=== PATIENT | female | born 1955 | race Caucasian/White ===

== ENCOUNTER 2019-07-28 12:15 | Emergency (ER) | payer MEDICARE, SELFPAY ==
[2019-07-28 12:28] VITALS: BP 115/58; PULSE 78; RESP 20; TEMP 36.8; O2SAT 100
--- NOTE | 2019-07-28 12:46 | ED.GENADULT ---
HPI - General Adult General Chief complaint: Upper Respiratory Infection Stated complaint: SINUS CONGESITON/COUGH Time Seen by Provider: 07/28/19 12:52 Source: patient Mode of arrival: ambulatory Limitations: no limitations History of Present Illness HPI narrative: 63-year-old female [facility] complaints of sinus congestion for the past 5 to 6 weeks. Patient states she does have chronic allergy issues and does take a daily Claritin. Patient states she has been using home remedy and treatments including a humidifier in her room and warm salt water gargles. Patient states that she continues to have nasal congestion, drainage, cough and sometimes does cough up some sputum but denies any chest pain or shortness of breath. Denies any fevers. Denies any abdominal pain, nausea, vomiting or diarrhea. Related Data Home Medications Medication Instructions Recorded Confirmed Vitamin D3 07/28/19 insulin asp prt-insulin aspart 45 unit SUBCUT HS 07/28/19 07/28/19 [Novolog Mix 70-30 U-100 Insuln] losartan 100 mg PO DAILY 07/28/19 07/28/19 metoprolol tartrate 25 mg PO BID 07/28/19 07/28/19 semaglutide [Ozempic] 1 mg SUBCUT WEEKLY 07/28/19 07/28/19 Allergies Allergy/AdvReac Type Severity Reaction Status Date / Time adhesive Allergy Unknown Rash Verified 07/28/19 12:40 aspirin Allergy Unknown Other Verified 07/28/19 12:40 clindamycin Allergy Unknown Diarrhea Verified 07/28/19 12:40 latex Allergy Unknown Other Verified 07/28/19 12:40 lidocaine Allergy Unknown Other Verified 07/28/19 12:40 lisinopril Allergy Unknown Itching Verified 07/28/19 12:40 Review of Systems Review of Systems: Narrative: CONSTITUTIONAL: Denies fever, chills, or sweats. EYES: Denies visual changes, redness, or discharge. ENT: Positive rhinorrhea, congestion, denies sore throat, or otalgia. CARDIOVASCULAR: Denies chest pain, palpitations, or edema. RESPIRATORY: Positive cough, denies dyspnea. GASTROINTESTINAL: Denies abdominal pain, nausea, vomiting, or diarrhea. GENITOURINARY: Denies dysuria or hematuria. SKIN: Denies rash or itching. MUSCULOSKELETAL: Denies back pain, joint pain, or myalgia. NEUROLOGIC: Positive headache, denies numbness, or weakness. PSYCHIATRIC: Denies anxiety or depression. [facility] Family History Family History Father Diabetes mellitus Family history of Alzheimer's disease Grandparent Diabetes mellitus Mother Diabetes mellitus Sibling Diabetes mellitus Family history of blood dyscrasia Cerebrovascular accident Other Family history of bipolar disorder Social History Social History Smoking status: Former smoker Smoking end date: 06/17/84 Alcohol intake: current Comments At the time of my signature I agree with nursing past medical history, surgical, social, and family history. There is no relevant family history pertinent to the presenting complaint. Exam Narrative: Exam Narrative: GENERAL: Well-appearing, well-nourished, and in no acute distress. HEAD: Normocephalic, atraumatic. Tenderness noted to frontal and maxillary sinuses on palpation. EYES: PERRLA and EOMI. ENT: Nares with erythema and edema noted bilaterally, no rhinorrhea or epistaxis. Mucous membranes moist. Posterior pharynx with no erythema, tonsillar margin, exudates or lesions present. Bilateral TMs are clear no erythema or foreign bodies in the canal. NECK: Supple. No lymphadenopathy CHEST: Clear to auscultation. No respiratory distress. HEART: Regular rate and rhythm. No murmur heard. Normal peripheral pulses. ABDOMEN: Soft, nontender, nondistended, normal active bowel sounds. EXTREMITIES: Normal range of motion. No edema. SKIN: Warm, dry, no rash. NEURO: No focal deficits. Alert and oriented x3. Course Vital Signs Vital signs: Vital Signs Temperature 36.8 C 07/28/19 12:28 Pulse Rate 78
== END 2019-07-28 13:05 | disposition home or self-care (01) ==
PROVIDERS: Emergency Provider Nurse Practitioner Family; PCP Family Medicine
DX: J32.0 Chronic maxillary sinusitis (principal); Z87.891 Personal history of nicotine dependence; E78.00 Pure hypercholesterolemia, unspecified; I10 Essential (primary) hypertension; J45.909 Unspecified asthma, uncomplicated; G47.30 Sleep apnea, unspecified; M19.90 Unspecified osteoarthritis, unspecified site; M79.7 Fibromyalgia; E11.9 Type 2 diabetes mellitus without complications
CPT/HCPCS: 99213; G0463

== ENCOUNTER 2020-01-27 07:33 | Outpatient (CLI) | payer MEDICARE, SELFPAY ==
--- NOTE | ~2020-01-27 | US_ITS ---
EXAMINATION: US right upper quadrant DATE: 01/27/2020 08:14 INDICATION: Right upper quadrant abdominal mass. TECHNIQUE: Multiple grayscale and Doppler ultrasound images of the abdomen were obtained. COMPARISON: Chest CT 02/01/2017 FINDINGS: The visualized portions of the head, body, and tail of the pancreas are normal. The liver i s normal without focal lesion. There is normal flow in main portal vein. The gallbladder is normal in size. No gallstones or wall thickening. There was no sonographic Castro sign. The common duct is nor mal and measures 3 mm. IMPRESSION: 1. Normal right upper quadrant ultrasound. Note that the prior CT showed a hernia in the right upper quadrant. Reviewed, dictated and finalized at location [facility]. IMPRESSION: 1. Normal right upper quadrant ultrasound. Note that the prior CT showed a andra ia in the right upper quadrant.
--- NOTE | ~2020-01-27 | XR_ITS ---
EXAMINATION: XR knee LT 3V DATE: 01/27/2020 08:32 INDICATION: Left knee pain. TECHNIQUE: 3 views of left knee were obtained. COMPARISON: None. FINDINGS: Bone alignment is normal. No fracture. There is moderate osteoarthritis of medial compartme nt and mild osteoarthritis of lateral and patellofemoral compartments. No knee joint effusion. IMPRESSION: 1. Moderate left knee osteoarthritis. Reviewed, dictated and finalized at location [facility].
== END 2020-01-27 07:34 | disposition home or self-care (01) ==
LOC: CHSIMG 07:35
PROVIDERS: PCP Family Medicine; Visit Provider Family Medicine
DX: R19.01 Right upper quadrant abdominal swelling, mass and lump (principal); M25.562 Pain in left knee
CPT/HCPCS: 73562; 76705

== ENCOUNTER 2020-08-17 13:30 | Outpatient (CLI) | payer MEDICARE, SELFPAY ==
[2020-08-18 00:45] LABS: SARS-CoV-2 RNA PCR Negative
== END 2020-08-17 13:31 | disposition home or self-care (01) ==
LOC: CHSLAB 13:33
PROVIDERS: PCP Family Medicine; Visit Provider Family Medicine
DX: J00 Acute nasopharyngitis [common cold] (principal); Z20.822 Contact with and (suspected) exposure to COVID-19
CPT/HCPCS: C9803; U0003; U0005

== ENCOUNTER 2021-07-23 19:05 | Inpatient (IN) | payer MEDICARE, SELFPAY ==
--- NOTE | ~2021-07-23 | CT_ITS ---
EXAMINATION: CT abdomen pelvis w con DATE: 07/23/2021 23:36 INDICATION: Worsening right abdominal pain TECHNIQUE: Computed tomography (CT) of the abdomen and pelvis was performed with 100 cc Omnipaque 350 intravenous contrast. Automated exposure control and iterative reconstruction technique were employe d. Exam dose: 1360.75 mGy-cm total exam DLP. COMPARISON: None. FINDINGS: There is minimal atelectasis in the lower lung zones. Normal heart size. No pericardial or pleural effusion. No hepatic space-occupying mass lesion is evident. Phrygian cap of the gallbladder. No gallbladder wall thickening or pericholecystic fluid or fat stran ding. No bile duct or pancreatic duct dilatation. No pancreatic mass lesion or calcification. Normal splenic size. The adrenal glands are unremarkable. 5.8 cm lower pole right renal cyst. The kidneys are otherwise unremarkable. No urinary tract calculus or hydroureteronephrosis. Normal caliber of the abdominal aorta. No intraperitoneal or retroperitoneal or pelvic mass lesion or adenopathy or ascites. Status post hysterectomy. There is small bowel obstruction within a large right ventral abdominal wall hernia with up to 6.7 cm wide neck, apparently due to some septation within the hernia sac, with transition zone in the media l aspect of the hernia sac. The small bowel is decompressed distal to this point and dilated up to 3. 3 cm diameter and numerous small bowel air-fluid levels proximal to the obstruction. There is small bowel as well as the right colon and appendix within the hernia sac. There is no evide nce of appendicitis. Diffuse idiopathic skeletal hyperostosis of the thoracic spine. There is multilevel degenerative disc disease of the lumbar spine, most pronounced at L3-4 and L5-S1. There is a smaller more superiorly situated right-sided upper anterior abdominal wall hernia with 2.8 cm neck, measuring up to 7.2 cm transverse dimension, containing fat. Diverticulosis of the left colon; no CT evidence of diverticulitis. No intraperitoneal free air is detected. IMPRESSION: Small bowel obstruction within the medial aspect of a large [place] right ventral abdo marquise wall hernia Smaller right upper abdominal wall fat-containing abdominal wall hernia 5.8 cm right renal cyst Status post hysterectomy Reviewed, dictated and finalized at [facility]. Reviewed, dictated and finalized at location A. N TIRE INSPECTOR IMPRESSION: Small bowel obstruction within the medial aspect of a large [place] uth right ventral abdominal wall hernia Smaller right upper abdominal wall fat-containing abdominal wall hernia 5.8 cm right renal cyst Status post hysterectomy
--- NOTE | ~2021-07-23 | XR_ITS ---
EXAMINATION: XR abdomen NG/feed tube insert DATE: 07/24/2021 01:15 INDICATION: Nasogastric tube placement TECHNIQUE: A supine view of the abdomen and lower chest was obtained for evaluation of feeding tube placement. COMPARISON: None. FINDINGS: Nasal gastric tube tip in proximal side port in the body of the stomach. No dilated loops of gas-fill ed bowel in the visualized abdomen. No evident airspace opacities in the visualized mid and lower avery g zones. Heart size is normal. IMPRESSION: 1. Nasogastric tube in stomach. Reviewed, dictated and finalized at location A. [employer]
[2021-07-23 19:14] VITALS: BP 165/77; PULSE 87; RESP 18; TEMP 36.9; O2SAT 100
--- NOTE | 2021-07-23 22:34 | ED.ABDPAIN ---
HPI - Abdominal Pain General Chief Complaint: Abdominal Pain Stated Complaint: abd pain, diarrhea, headache Time Seen by Provider: 07/23/21 21:51 Source: patient History of Present Illness HPI narrative: 65-year-old female presented to the emergency department for evaluation of abdominal bloating and cramping that has been ongoing for the last month but has worsened over the last few days. Patient has a previous history of an adrenal tumor that was removed laparoscopically. Patient developed a worsening hernia after that surgery. Patient has had approximately 7 surgeries to fix that hernia but does still have a significant abdominal wall defect containing her bowels. Patient has had follow-up with Dr. Muñoz (?) at [facility] and he is expected to be the physician to repair this. Patient also describes a thinning of the caliber of her stool over the last few weeks. Patient's previous abdominal surgeries were done at [place] Patient declined any medications for pain control at this time. Related Data Home Medications Medication Instructions Recorded Confirmed insulin asp prt-insulin aspart 35 unit SUBCUT BID 07/28/19 07/24/21 [Novolog Mix 70-30 U-100 Insuln] metformin 1,000 mg PO BID 07/24/21 07/24/21 Allergies Allergy/AdvReac Type Severity Reaction Status Date / Time adhesive Allergy Unknown Rash Verified 07/24/21 00:01 clindamycin Allergy Unknown Diarrhea Verified 07/24/21 00:01 latex Allergy Unknown Itching Verified 07/24/21 00:01 lidocaine Allergy Unknown Other Verified 07/24/21 00:01 lisinopril Allergy Unknown Itching Verified 07/24/21 00:01 Review of Systems Review of Systems: CONSTITUTIONAL: Denies fever, chills, or sweats. EYES: Denies visual changes, redness, or discharge. ENT: Denies rhinorrhea, congestion, sore throat, or otalgia. CARDIOVASCULAR: Denies chest pain, palpitations, or edema. RESPIRATORY: Denies cough or dyspnea. GASTROINTESTINAL: Increasing fullness of the abdominal hernia, increased abdominal cramping, decreased stool caliber GENITOURINARY: Denies dysuria or hematuria. SKIN: Denies rash or itching. MUSCULOSKELETAL: Denies back pain, joint pain, or myalgia. NEUROLOGIC: Denies headache, numbness, or weakness. All systems reviewed & are unremarkable except as noted in HPI and below PMFSH Family History Family History (Updated 07/24/21 @ 02:18 by Vale Bazan RN) Father Diabetes mellitus Family history of Alzheimer's disease Grandparent Diabetes mellitus Family history of blood dyscrasia Mother Diabetes mellitus Family history of Alzheimer's disease Sibling Diabetes mellitus Cerebrovascular accident Son Family history of bipolar disorder Grandparent No problems noted. Social History Social History Smoking status: Former smoker Alcohol intake: current Substance use: never Spiritual care concerns: No Exam Narrative: APPEARANCE: Well appearing, no pain, no distress, well-nourished. HEAD: normocephalic, atraumatic. EYES: PERRLA/EOMI, conjunctivae clear. NECK: Supple. No adenopathy, no masses. RESPIRATORY: Airway patent, respirations nonlabored. Clear to auscultation bilaterally, no rales, rhonchi, wheezing. CARDIOVASCULAR: Regular rate and rhythm without murmurs rubs or gallops. ABDOMINAL: Large right-sided abdominal wall hernia, minimal tenderness to palpation. Decreased bowel sounds. Some chronic wounds and scars on the abdomen but no active drainage or evidence of acute infection MUSCULOSKELETAL: Moves all extremities. Strength/ROM intact, No edema, No calf tenderness. SKIN: Warm, dry. Normal Color Course Course Emergency Course: Case was discussed with surgery and patient was accepted by . Hospitalist was consulted to manage the patient's blood sugars due to her diabetes. Patient was updated on the plan for admission. NG tube was placed. Vital Signs Vital signs: Vital Signs Temperature 98
[2021-07-23 22:44] LABS: Basophils Percent Auto 0.2 % (0.2-1.2); Eosinophils Absolute Auto 0.2 K/mm3 (0-0.3); Eosinophils Percent Auto 1.8 % (0-4.4); Hematocrit 42.7 % (37.0-47.0); Hemoglobin 13.8 g/dL (12.0-15.0); Immature Granulocyte Absolute 0.03 K/mm3 (0.00-0.031); Immature Granulocyte Percent A 0.3 % (0-0.5); Lymphocytes Absolute Auto 3.33 K/mm3 (0.9-3.2); Lymphocytes Percent Auto 34.8 % (18.3-44.2); Mean Corpuscular HGB Conc 32.3 g/dl (32-36); Mean Corpuscular Hemoglobin 29.4 pg (26-34); Mean Platelet Volume 10.4 fl (7.4-10.4); Monocytes Absolute Auto 0.6 K/mm3 (0.1-0.6); Neutrophils Absolute Auto 5.5 K/mm3 (1.3-6.7); Neutrophils Percent Auto 56.9 % (45.5-73.1); Platelet Count Result 325 k/mm3 (150-375); Red Blood Count 4.69 M/mm3 (4.2-5.4); Red Cell Distribution Width 13.6 % (11.5-14.5); White Blood Count 9.6 K/mm3 (4.5-10.0)
[2021-07-23 22:46] LABS: Alanine Aminotransferase 17 U/L (4-35); Albumin Level 4.3 g/dL (3.5-5.1); Alkaline Phosphatase 84 U/L (38-126); Anion Gap 7 mmol/L (8-16); Aspartate Amino Transferase 20 U/L (14-36); Bilirubin,Total 0.8 mg/dL (0.2-1.3); Blood Urea Nitrogen 8 mg/dL (7-17); Calcium 9.9 mg/dL (8.4-10.2); Carbon Dioxide 28 mmol/L (22-30); Chloride 101 mmol/L (98-107); Estimated CRCL calculation 68 ml/min; Estimated Glomerular Filt Rate > 60; Glucose 111 mg/dL (65-110); Lipase 36 U/L (23-300); Potassium 3.7 mmol/L (3.4-5.0); Sodium 136 mmol/L (137-145)
[2021-07-23 22:52] LABS: Add Urine Microscopic? YES; Appearance Urine Clear (Clear); Bacteria Urine Trace /hpf; Bilirubin Urine Negative (Negative); Blood Urine Negative (Negative); Color Urine Yellow (Yellow); Glucose Urine UA Negative (Negative); Ketones Urine Negative (Negative); Lactic Acid Reflex 1.1 mmol/L (0.7-2.1); Leukocyte Esterase Ur 3+ LEU/UL (Negative); Mucus Urine Rare /lpf; Nitrate Urine Negative (Negative); Protein Urine Negative (Negative); RBC Urine 0-2 /hpf (0-2); Specific Grav Ur 1.015 (1.001-1.035); Squamous Epithelial Cell Urine Moderate /hpf (Few); Urobilinogen Urine Negative mg/dL (<2.0); WBC Urine 16-20 /hpf
[2021-07-23 23:57] VITALS: BP 177/80; PULSE 77; RESP 14; O2SAT 99
[2021-07-24] VITALS (8 sets, daily range): BP systolic 145–182; BP diastolic 57–73; PULSE 70–82; RESP 16–18; TEMP 36.4–36.6; O2SAT 96–100; BMI 43.2
[2021-07-24 00:38] LABS: SARS-CoV-2 RNA PCR Negative
[2021-07-24] MEDS: SODIUM CHLORIDE 0.9% IV 1,000 ML 125 ML IV CONT ×3 (01:57→20:59)
--- NOTE | 2021-07-24 07:45 | PM.IMCN ---
Assessment and Plan Assessment and plan (1) SBO (small bowel obstruction): Code(s): K56.609 - Unspecified intestinal obstruction, unspecified as to partial versus complete obstruction Status: Acute Assessment and Plan: Based on prior records from GI consultation 10/2018 it showed: In 2006 she developed an incisional hernia at laparoscopic port site and underwent incisional hernia repair with mesh. Subsequently in 2006 mesh became infected and she underwent removal of infected mesh. In 2007 she developed recurrent incisional hernia at this site and underwent removal of remaining mesh and incisional hernia repair with suture only. Two thousand she developed another recurrent incisional hernia and underwent repair of hernia with mesh. Soon after the repair she noticed a large recurrent bulge in the right lower quadrant at site of previous surgeries. At this time, CT is suggesting SBO with transition point within the right abdominal wall hernia with mild inflammation in the hernia sac and cannot exclude incarceration. She was admitted under General Surgery and with a consult to Hospitalist service for management of HTN and diabetes. She has PRN antiemetics, pain medications and PPI ordered. Continue monitoring. (2) Essential hypertension: Code(s): I10 - Essential (primary) hypertension Status: Acute Assessment and Plan: BP elevated this morning at 160/68. Most likely secondary to pain. Patient had been refusing pain medication thus far. Continue monitoring. Add PRN medications if needed. (3) Insulin dependent diabetes mellitus: Status: Acute Assessment and Plan: Since she is NPO will order SSI at this time. Continue monitoring glucose Q6hrs. Hypoglycemic protocol in place. SSI. HPI Data of Consult Consult date: 07/24/21 Requesting Physician: Radha Navarro PA-C Primary Care Provider: Mina Mendez MD Consult Narrative Narrative: Giuliana Jerry is a 65 year old female with a history of fibromyalgia, HTN, DM, asthma and multiple abdominal surgeries in the past, presented to the ER with symptoms of abd pain. The patient has a long history of multiple abdominal surgeries in the past. She has had all of her surgeries at [facility] and had been following up with a surgeon named Dr. Roland about possibly another surgery given the large hernia she has to her right lower quadrant. She saw him before 2019 the COVID pandemic and he wanted her to lose 100 lbs for him to be able to do the approriate surgery. Then once the pandemic started she has not been back to follow up given her autoimmune diseases and worried about becoming sick. She had been doing well until Feb 2021 when she had an episode of vomiting and some abdominal discomfort. Since then she has had gradually worsening abdominal discomfort, silvana colored and thinner stools. She states her abdomen felt sluggist . She started a probiotic with some improvement in her bowel movements. She reports about 1 week ago her symptoms became worse again, with diffuse abdominal bloating, vomiting, tenderness and firmness to her abdomen. She reported feeling constipated and took some Miralax and had a small bowel movement a few days ago which made her feel minimally better. She has not appetite and reports only drinking 1 bottle of water per day and 1 sprite. She has not eaten much food at all because of her symptoms. She decided to finally come in to the ER given continued symptoms without any relief, fatigue, weakness for further evaluation. She denies any fever, chills, chest pain, SOB, cough,nausea, leg swelling, calf pain, lightheadedness, dizziness or any other symptoms at this time. Review of Systems Review of Systems: All systems reviewed & are unremarkable except as noted in HPI an
[2021-07-24] MEDS: PANTOPRAZOLE SODIUM IV 40 MG VIAL IV PUSH ×2 (09:56→20:27)
[2021-07-24] MEDS: PHENOL/SOD PHENO SPRAY CHERRY (*BKC) 1 SPRAY MUCOUS MEM (11:53)
[2021-07-24 14:54] LABS: Glucose Point of Care 109 mg/dl (65-105)
--- NOTE | 2021-07-24 15:40 | PM.IMHP ---
H&P: HPI History of Present Illness Date/Time: 07/24/21 10:05 Chief Complaint: Abdominal pain, distention Narrative: This is a 65-year-old obese female with type 2 diabetes mellitus and asthma, has a significant history of multiple extensive abdominal surgeries. She underwent a laparoscopic right adrenalectomy in 2002 due to a large-sized benign adrenal adenoma. In 2006, she developed an incisional hernia at the laparoscopic port site and underwent an incisional hernia repair with mesh. She reports poor healing and a chronic open wound from this incision that ultimately required incision and drainage with removal of some mesh in 2006. She reports having multiple cultures without any bacterial growth and did not believe that this was in fact infected. In 2007, she developed another recurrent incisional hernia and underwent removal of remaining mesh and incisional hernia repair with sutures. She reportedly healed from this surgery, but did develop another recurrent incisional hernia and underwent repair of the hernia with mesh in 2016. Soon after this repair, she noticed another bulge in the right upper quadrant at the site of her previous surgeries. She reports having all previous surgeries at [facility]. She reports now seeing a surgeon at [facility], Dr. Tomas Roland, about 1.5 years ago who discussed surgical treatment options for her recurrent incisional hernia. She was reportedly instructed to lose 100 lb for him to proceed with the surgery. She reports losing 70 lb in the last 1.5 years with lifestyle changes and intermittent fasting. She has not followed up with the surgeon since her initial consultation due to concerns with going into the hospital setting during the COVID pandemic. She also had a history of hypertension and hyperlipidemia, which she no longer takes medication for since her weight loss. The patient reports that 6 days ago, she had an episode of vomiting that she felt was related to over-eating. Almost immediately after the vomiting, she had a sudden onset of abdominal pain and swelling at her hernia. She reports her abdomen felt distended and she had pain all across her entire abdomen, but worse at the area of her hernia. She reports no further episodes of nausea or vomiting, but her abdominal pain and distention remained constant over the next few days. She reports also noticing a cough over the past week at times that would aggravate her abdominal pain. She also reports feeling constipated, therefore she took MiraLax two nights ago and subsequently had a large liquid BM. She admits to holding off on seeking medical treatment for personal reasons, but did eventually decide to come to the ER for evaluation yesterday. CT scan of the abdomen and pelvis showed a small bowel obstruction within the medial aspect of the large wide-mouthed right ventral abdominal wall hernia, and a smaller right upper abdominal wall hernia containing fat. Incidentally noted is a right renal cyst and degenerative disc disease. Labs were unremarkable. WBC and lactic acid were normal. Urinalysis showed 3+ leukocytes, 16-20 wbc's, and moderate squamous epithelial cells. Patient denies any urinary symptoms. COVID test negative. Our service was consulted by the ED physician due to the large ventral wall hernia possibly causing a small-bowel obstruction. The patient has been admitted and an NG tube was placed. She was started on IV fluids, made NPO, and is currently on the medical floor. The patient is now seen and examined. She reports feeling much better. She reports passing large amounts of gas overnight and this morning. No bowel movement since Saturday. She reports her abdominal pain has completely resolved and she feels that her distention has improved as well. No other complaints at this time. Review of Systems Review of Systems: All systems reviewed & are unremarkable except as noted in HPI and below Constitutional: Constitutiona
[2021-07-25 01:30] LABS: Glucose Point of Care 90 mg/dl (65-105)
[2021-07-25] MEDS: BENZOCAINE/MENTHOL (*BKC) 18 EA LOZENGE 1 LOZENGE PO (03:37)
[2021-07-25] MEDS: SODIUM CHLORIDE 0.9% IV 1,000 ML 125 ML IV CONT (05:13)
[2021-07-25 05:30] VITALS: BP 154/68; PULSE 84; RESP 16; TEMP 36.7; O2SAT 98
[2021-07-25 06:07] LABS: Glucose Point of Care 107 mg/dl (65-105)
[2021-07-25 08:02] LABS: Hematocrit 40.1 % (37.0-47.0); Hemoglobin 12.7 g/dL (12.0-15.0); Mean Corpuscular HGB Conc 31.7 g/dl (32-36); Mean Corpuscular Hemoglobin 29.8 pg (26-34); Mean Corpuscular Volume 94.1 fl (80-100); Platelet Count Result 233 k/mm3 (150-375); Red Blood Count 4.26 M/mm3 (4.2-5.4); Red Cell Distribution Width 13.7 % (11.5-14.5); White Blood Count 10.2 K/mm3 (4.5-10.0)
[2021-07-25 08:14] LABS: Lactic Acid Reflex 0.8 mmol/L (0.7-2.1)
[2021-07-25 08:15] LABS: Anion Gap 10 mmol/L (8-16); Blood Urea Nitrogen 6 mg/dL (7-17); Calcium 8.5 mg/dL (8.4-10.2); Carbon Dioxide 22 mmol/L (22-30); Chloride 106 mmol/L (98-107); Estimated CRCL calculation 78 ml/min; Estimated Glomerular Filt Rate > 60; Glucose 122 mg/dL (65-110); Magnesium 1.5 mg/dL (1.6-2.3); Potassium 3.7 mmol/L (3.4-5.0); Sodium 138 mmol/L (137-145)
[2021-07-25 08:30] LABS: Hemoglobin A1C 9.6 % (<5.7)
[2021-07-25] MEDS: PANTOPRAZOLE SODIUM IV 40 MG VIAL IV PUSH ×2 (09:46→20:42)
--- NOTE | 2021-07-25 10:00 | PM.IMPN ---
Progress Note: A&P Assessment and Plan (1) SBO (small bowel obstruction): Code(s): K56.609 - Unspecified intestinal obstruction, unspecified as to partial versus complete obstruction Status: Acute Assessment and Plan: Based on prior records from GI consultation 10/2018 it showed: In 2006 she developed an incisional hernia at laparoscopic port site and underwent incisional hernia repair with mesh. Subsequently in 2006 mesh became infected and she underwent removal of infected mesh. In 2007 she developed recurrent incisional hernia at this site and underwent removal of remaining mesh and incisional hernia repair with suture only. 2016 she developed another recurrent incisional hernia and underwent repair of hernia with mesh. Soon after the repair she noticed a large recurrent bulge in the right lower quadrant at site of previous surgeries. At this time, CT is suggesting SBO with transition point within the right abdominal wall hernia with mild inflammation in the hernia sac and cannot exclude incarceration. She was admitted under General Surgery and with a consult to Hospitalist service for management of HTN and diabetes. She has PRN antiemetics, pain medications and PPI ordered. Currently moving her bowels and tolerating clears Management per general surgery (2) Essential hypertension: Code(s): I10 - Essential (primary) hypertension Status: Acute Assessment and Plan: -mildly elevated but stable -continue monitoring, add hydralazine prn if indicated (3) Insulin dependent diabetes mellitus: Status: Acute Assessment and Plan: -Continue monitoring glucose Q6hrs. -Hypoglycemic protocol in place. -SSI. Subjective Date/time seen: 07/25/21 10:00 Interval history: 65 year old female with a history of fibromyalgia, HTN, DM, asthma and multiple abdominal surgeries in the past, admitted for small bowel obstruction. Pt is feeling much better. The NG tube was removed and she is tolerating clear liquids. She has had two bowel movements today. She denies N/V/abd pain. No cp/sob. Review of Systems Review of Systems: All systems reviewed & are unremarkable except as noted in HPI and below Exam Narrative: General: NAD, non toxic Skin: warm, dry Neck: Full range of motion. Supple. Respiratory: Lungs are clear to auscultation bilaterally. Cardiovascular: The heart has a regular rate and rhythm without murmur Lower extremities: No lower extremity edema. Distal pulses are easily palpated. No calf tenderness to palpation. Gastrointestinal: Large abdominal hernia noted to RLQ, soft to palpation, nontender. The abdomen is otherwise soft, nontender and nondistended. Positive bowel sounds. Psychiatric: Lucid and oriented. Memory intact. Neurologic: No focal deficits. Speech is clear. No facial drooping. Objective Data Vital Signs Vital Signs: Vital Signs - 24 hr 07/24/21 13:13 07/24/21 14:00 07/24/21 20:00 Temperature 97.6 F Pulse Rate 77 82 Respiratory Rate 16 16 Blood Pressure 145/57 H Pulse Oximetry 97 96 100 07/24/21 22:00 07/25/21 05:30 Temperature 97.8 F 98.1 F Pulse Rate 82 84 Respiratory Rate 16 16 Blood Pressure 147/63 H 154/68 H Pulse Oximetry 100 98 Intake/Output Intake/Output: Intake & Output 07/22/21 07/23/21 07/24/21 07/25/21 23:59 23:59 23:59 23:59 Intake Total 1999 1750 Output Total 925 700 Balance 1075 1050 Meds/Results Medications: Active Medications Generic Name Dose Route Start Last Admin Trade Name Freq PRN Reason Stop Dose Admin Benzocaine 1 lozenge 07/24/21 18:16 07/25/21 03:37 Benzocaine/Menthol (*Bkc) 18 Ea Lozenge PO 1 lozenge PRN PRN Administration Sore Throat Dextrose 12.5 gm 07/24/21 07:41 Dextrose 50% 25 Gm/50
--- NOTE | 2021-07-25 10:04 | PM.PNGS ---
Progress Note: A&P Assessment and Plan (1) SBO (small bowel obstruction): Code(s): K56.609 - Unspecified intestinal obstruction, unspecified as to partial versus complete obstruction Status: Acute Assessment and Plan: Resolving. Bowels are moving. Will remove NG tube today and start clear liquids. Encouraged walking the halls today as well. (2) Recurrent incisional hernia with incarceration: Code(s): K43.0 - Incisional hernia with obstruction, without gangrene Status: Acute Assessment and Plan: Large recurrent incisional hernia containing small bowel and some of the right colon that is likely the cause of the small bowel obstruction, which is resolving. Also a smaller RUQ ventral hernia superior to the larger one that contains fat. The hernias are soft and nontender. They are not fully reducible at baseline. Discussed with the patient that she should call Dr. Roland at [facility] after discharge to schedule a follow-up with him in the near future to discuss options for repairing her hernias. Continue to work on weight loss while waiting for the appointment. (3) Insulin dependent diabetes mellitus: Status: Acute Assessment and Plan: Hgb A1C 9.6 and glucose this morning is 122. Appreciate Hospitalist help. (4) Morbid obesity with body mass index (BMI) of 40.0 or higher: Code(s): E66.01 - Morbid (severe) obesity due to excess calories Status: Acute Assessment and Plan: Reported 70 lb weight loss in last 1.5 years. Continue working on weight loss while awaiting for f/u with Dr. Roland. Additional Plan I have discussed the patient's case and plan of care with . Subjective Subjective Date/Time Seen: 07/25/21 10:04 Patient reports: no new complaints, feels better, tolerating liquids well (sips), flatus, bowel movement (2) and afebrile Interval history: Patient seen and examined this morning. She reports much better. Denies any abdominal pain, bloating, or nausea. She reports having 2 bowel movements since yesterday, 1 being this morning. She feels her right upper quadrant hernia is back to what it typically feels like at home. She is tolerating activity. No other complaints at this time. Review of Systems Review of Systems: All systems reviewed & are unremarkable except as noted in HPI and below Exam Const: General: comfortable, no acute distress, alert and awake Nutritional Appearance: obese morbidly obese GI: Inspection: obesity and visible herniation (large bulge in RUQ) GI Palp: Yes Soft to palpation, No Tenderness to palpation present (GI), No Guarding due to palpation present (GI), Yes Hernia present (RUQ incisional hernia is soft, partially reducible, nontender) and No Rebound tenderness present Auscultation: normal bowel sounds Other: Two small scabs inferior and superior to the RUQ scar that have no active drainage or open wounds, no erythema or warmth around the scab. Neuro: General: moves all extremities and no focal motor deficits Extrem: General: no edema Psych: Insight: Good insight present (Psych) Judgement: Good judgement present (Psych) Objective Data Vital Signs Vital Signs: Vital Signs - 24 hr 07/24/21 13:13 07/24/21 14:00 07/24/21 20:00 Temperature 97.6 F Pulse Rate 77 82 Respiratory Rate 16 16 Blood Pressure 145/57 H Pulse Oximetry 97 96 100 07/24/21 22:00 07/25/21 05:30 Temperature 97.8 F 98.1 F Pulse Rate 82 84 Respiratory Rate 16 16 Blood Pressure 147/63 H 154/68 H Pulse Oximetry 100 98 Intake/Output Intake/Output: Intake & Output 07/22/21 07/23/21 07/24/21 07/25/21 23:59 23:59 23:59 23:59 Intake Total 1999 1750 Output Total 925 700 Balance 1075 1050 Meds/Results Medications: Active Medications Generic Name Dose Route Start Last Admin Trade Name Venkatesh PRN Reason Stop Dose Admin Benzocaine 1 lozenge 07/24/21 18:16 07/25/21 03:37 Benzocaine/Menthol (*Bkc) 18 Ea Lozeng
[2021-07-25 12:50] LABS: Glucose Point of Care 167 mg/dl (65-105)
[2021-07-25] MEDS: SODIUM CHLORIDE 0.9% IV 1,000 ML 75 ML IV CONT (13:32)
[2021-07-25 14:00] VITALS: BP 148/58; PULSE 75; RESP 18; TEMP 36.9; O2SAT 98
[2021-07-25] MEDS: MAGNESIUM OXIDE 400 MG TABLET PO (17:31)
[2021-07-25 19:38] LABS: Glucose Point of Care 212 mg/dl (65-105)
[2021-07-25 20:00] VITALS: PULSE 69; RESP 16; O2SAT 99
[2021-07-25 21:40] VITALS: BP 152/68; PULSE 69; RESP 16; TEMP 37.1; O2SAT 99
[2021-07-25 22:12] LABS: Glucose Point of Care 170 mg/dl (65-105)
[2021-07-26] MEDS: SODIUM CHLORIDE 0.9% IV 1,000 ML 75 ML IV CONT (02:58)
[2021-07-26 05:59] VITALS: BP 151/64; PULSE 69; RESP 16; TEMP 36.4; O2SAT 97
[2021-07-26 07:26] LABS: Basophils Percent Auto 0.4 % (0.2-1.2); Eosinophils Absolute Auto 0.4 K/mm3 (0-0.3); Eosinophils Percent Auto 5.4 % (0-4.4); Hematocrit 36.2 % (37.0-47.0); Hemoglobin 11.8 g/dL (12.0-15.0); Immature Granulocyte Absolute 0.03 K/mm3 (0.00-0.031); Immature Granulocyte Percent A 0.4 % (0-0.5); Lymphocytes Percent Auto 32.1 % (18.3-44.2); Mean Corpuscular HGB Conc 32.6 g/dl (32-36); Mean Corpuscular Hemoglobin 29.4 pg (26-34); Mean Platelet Volume 10.8 fl (7.4-10.4); Monocytes Absolute Auto 0.7 K/mm3 (0.1-0.6); Monocytes Percent Auto 8.7 % (2.6-8.5); Platelet Count Result 276 k/mm3 (150-375); Red Blood Count 4.02 M/mm3 (4.2-5.4); Red Cell Distribution Width 13.3 % (11.5-14.5); White Blood Count 7.5 K/mm3 (4.5-10.0)
[2021-07-26 07:30] LABS: Anion Gap 10 mmol/L (8-16); Blood Urea Nitrogen 4 mg/dL (7-17); Calcium 8.2 mg/dL (8.4-10.2); Carbon Dioxide 24 mmol/L (22-30); Chloride 107 mmol/L (98-107); Estimated CRCL calculation 78 ml/min; Estimated Glomerular Filt Rate > 60; Glucose 140 mg/dL (65-110); Potassium 3.2 mmol/L (3.4-5.0); Sodium 141 mmol/L (137-145)
[2021-07-26 07:58] LABS: Glucose Point of Care 139 mg/dl (65-105)
[2021-07-26] MEDS: MAGNESIUM OXIDE 400 MG TABLET PO (09:25)
[2021-07-26] MEDS: POTASSIUM CHLORIDE 20 MEQ TABLET 40 MEQ PO (09:28)
--- NOTE | 2021-07-26 09:44 | PM.PNGS ---
Progress Note: A&P Assessment and Plan (1) SBO (small bowel obstruction): Code(s): K56.609 - Unspecified intestinal obstruction, unspecified as to partial versus complete obstruction Status: Acute Assessment and Plan: Resolved. Bowels are moving. Advance to a low-fiber diet today. Would recommend that she follow a low-fiber diet until she follows up with Dr. Roland at [facility]. Okay from our standpoint to discharge the patient today. (2) Recurrent incisional hernia with incarceration: Code(s): K43.0 - Incisional hernia with obstruction, without gangrene Status: Acute Assessment and Plan: Recommend follow-up with Dr. Roland at [facility] to discuss options for hernia repair. Patient has an appointment for Saturday. (3) Insulin dependent diabetes mellitus: Status: Acute Assessment and Plan: Hgb A1C 9.6, appreciate Hospitalist help. Recommended to continue working on adequate glycemic control. (4) Morbid obesity with body mass index (BMI) of 40.0 or higher: Code(s): E66.01 - Morbid (severe) obesity due to excess calories Status: Acute Assessment and Plan: Reported 70 lb weight loss in last 1.5 years. Continue working on weight loss while awaiting for f/u with Dr. Roland. Additional Plan I have discussed the patient's case and plan of care with . Subjective Subjective Date/Time Seen: 07/26/21 09:44 Patient reports: no new complaints, feels better, flatus, bowel movement and afebrile Interval history: Patient seen and examined this morning. She is tolerating a full liquid diet. She feels hungry. She also reports having a large bowel movement this morning. No abdominal pain, bloating, or distention of her hernia that she feels is different than her baseline. No other complaints at this time. She also reports that she has scheduled a follow-up appointment with Dr. Roland at [facility] for Saturday. Review of Systems Review of Systems: All systems reviewed & are unremarkable except as noted in HPI and below Exam Const: General: comfortable, no acute distress, alert and awake Nutritional Appearance: obese morbidly obese Orientation/consciousness: patient oriented x3 GI: Inspection: non-distended, Pannus present, obesity, scar (large horizontal RUQ scar) and visible herniation (large bulge in RUQ) GI Palp: Yes Hernia present (large RUQ incisional hernia that is soft, nontender, partially reducible) Auscultation: normal bowel sounds Other: Two small scabs inferior and superior to the RUQ scar that have no active drainage or open wounds, no erythema or warmth around the scab. Neuro: General: moves all extremities and no focal motor deficits Extrem: General: normal to inspection Psych: Mental Status: mental status grossly normal Insight: Good insight present (Psych) Judgement: Good judgement present (Psych) Objective Data Vital Signs Vital Signs: Vital Signs - 24 hr 07/25/21 14:00 07/25/21 20:00 07/25/21 21:40 Temperature 98.4 F 98.7 F Pulse Rate 75 69 69 Respiratory Rate 18 16 16 Blood Pressure 148/58 H 152/68 H Pulse Oximetry 98 99 99 07/26/21 05:59 Temperature 97.5 F L Pulse Rate 69 Respiratory Rate 16 Blood Pressure 151/64 H Pulse Oximetry 97 Intake/Output Intake/Output: Intake & Output 07/23/21 07/24/21 07/25/21 07/26/21 23:59 23:59 23:59 23:59 Intake Total 1999 3260 2260 Output Total 925 1600 Balance 1075 1660 2260 Meds/Results Medications: Active Medications Generic Name Dose Route Start Last Admin Trade Name Freq PRN Reason Stop Dose Admin Benzocaine 1 lozenge 07/24/21 18:16 07/25/21 03:37 Benzocaine/Menthol (*Bkc) 18 Ea Lozenge PO 1 lozenge PRN PRN Administration Sore Throat Dextrose 12.5 gm 07/24/21 07:41 Dextrose 50% 25 Gm/50 Ml Syringe IV PUSH PRN PRN Hypoglycemia Protocol Glucagon 1 mg 07/24/21 07:41 Glucagon For Inj 1 Mg Vial IM PRN PRN Hypoglycemi
[2021-07-26 11:34] LABS: Anion Gap 2 mmol/L (8-16); Blood Urea Nitrogen 4 mg/dL (7-17); Calcium 8.7 mg/dL (8.4-10.2); Carbon Dioxide 29 mmol/L (22-30); Chloride 104 mmol/L (98-107); Estimated CRCL calculation 78 ml/min; Estimated Glomerular Filt Rate > 60; Glucose 211 mg/dL (65-110); Potassium 4.1 mmol/L (3.4-5.0); Sodium 135 mmol/L (137-145)
[2021-07-26 11:58] LABS: Glucose Point of Care 189 mg/dl (65-105)
--- NOTE | 2021-07-26 12:31 | PM.DS ---
DS: Admitting Diagnosis Discharge Date 07/26/21 Admitting Diagnosis Recurrent incisional hernia with incarceration but no strangulation Small bowel obstruction IDDM Obesity BMI > 40 DS: Discharge Diagnosis Discharge Diagnosis (1) Recurrent incisional hernia with incarceration: Code(s): K43.0 - Incisional hernia with obstruction, without gangrene Status: Acute Assessment and Plan: Follow-up with Dr. Roland at [facility] to discuss surgical repair. Patient has an appointment scheduled for Saturday with him. (2) SBO (small bowel obstruction): Code(s): K56.609 - Unspecified intestinal obstruction, unspecified as to partial versus complete obstruction Status: Acute Assessment and Plan: Resolved. (3) Insulin dependent diabetes mellitus: Status: Acute Assessment and Plan: Hgb A1C 9.6, glucose remained stable. Hospitalist consulted and helped managed her diabetes while hospitalized. Follow-up with PCP. (4) Morbid obesity with body mass index (BMI) of 40.0 or higher: Code(s): E66.01 - Morbid (severe) obesity due to excess calories Status: Acute Assessment and Plan: Reported 70 lb weight loss in last 1.5 years. Continue working on weight loss while awaiting for f/u with Dr. Roland. DS: Summary Hospital Course Reason for hospitalization: This is a 65-year-old obese female with type 2 diabetes mellitus, who has a significant history of multiple extensive abdominal surgeries (all outlined in the H&P). She presented to the ER with complaints of abdominal pain and bloating. CT scan of the abdomen and pelvis showed a small bowel obstruction within the medial aspect of the large wide-mouthed right ventral abdominal wall hernia, and a smaller right upper abdominal wall hernia containing fat. Labs were unremarkable. WBC and lactic acid were normal. Our service was consulted by the ED physician due to the large ventral wall hernia possibly causing a small-bowel obstruction. The patient has been admitted in this setting. Hospital Course: The small bowel obstruction was treated with conservative measures, including NG tube decompression, bowel rest, IV fluids, and analgesics. She quickly showed clinical improvement. Her abdominal pain and bloating subsided overnight. Her RUQ incisional hernias were soft and nontender on exam. At baseline, they are unable to be fully reduced, and she felt that her hernias had returned to their typical appearance and feel at baseline at home. Bowel function returned, and her NG tube was removed. She was slowly advanced to a low fiber diet. She continued to improve up until today. She is now tolerating a low fiber diet and stable for discharge. Due to the large size of her hernia, loss of domain, and expected complexity of the repair, we would recommend that she follow back up with Dr. Roland at [facility] as soon as possible after discharge to re-evaluate her for surgical repair. Status at Discharge Functional status at discharge: independent ambulation Overall status at discharge: patient is back to baseline Time Spent with Patient Time attestation: Total time spent providing and/or coordinating discharge services: Time spent: Less than 30 minutes DS: Data Data Completed and Pending Labs on day of discharge: Labs from last 24 hours 07/26/21 07/26/21 07/26/21 11:32 11:19 07:56 WBC RBC Hgb Hct MCV MCH MCHC RDW Plt Count MPV Immature Gran % (Auto) Neut % (Auto) Lymph % (Auto) Pepin % (Auto) Eos % (Auto) Baso % (Auto) Lymph # (Auto) Pepin # (Auto) Eos # (Auto) Baso # (Auto) Abs Immat Gran (auto) Absolute Neuts (auto) Absolute Nucleated RBC Nucleated RBC % Sodium 135 L Potassium 4.1 Chloride 104 Carbon Dioxide 29 Anion Gap 2 L BUN 4 L Creatinine 0.70 Estim Creat Clear Calc 78 Estimated GFR > 60 Glucose 211 H POC Capillary Glucose 189 H 139 H Ca
--- NOTE | 2021-07-26 13:19 | PM.IMPN ---
Progress Note: A&P Assessment and Plan (1) SBO (small bowel obstruction): Code(s): K56.609 - Unspecified intestinal obstruction, unspecified as to partial versus complete obstruction Status: Acute Assessment and Plan: Based on prior records from GI consultation 10/2018 it showed: In 2006 she developed an incisional hernia at laparoscopic port site and underwent incisional hernia repair with mesh. Subsequently in 2006 mesh became infected and she underwent removal of infected mesh. In 2007 she developed recurrent incisional hernia at this site and underwent removal of remaining mesh and incisional hernia repair with suture only. 2016 she developed another recurrent incisional hernia and underwent repair of hernia with mesh. Soon after the repair she noticed a large recurrent bulge in the right lower quadrant at site of previous surgeries. At this time, CT is suggesting SBO with transition point within the right abdominal wall hernia with mild inflammation in the hernia sac and cannot exclude incarceration. She was admitted under General Surgery and with a consult to Hospitalist service for management of HTN and diabetes. She has PRN antiemetics, pain medications and PPI ordered. Currently moving her bowels and tolerating low fiber diet Management per general surgery, being discharged today (2) Essential hypertension: Code(s): I10 - Essential (primary) hypertension Status: Acute Assessment and Plan: -mildly elevated but stable -pcp follow up (3) Insulin dependent diabetes mellitus: Status: Acute Assessment and Plan: -Continue monitoring glucose Q6hrs. -Hypoglycemic protocol in place. -SSI. -stable -continue kathleen e meds on discharge (4) Hypomagnesemia: Code(s): E83.42 - Hypomagnesemia Status: Acute Assessment and Plan: -mildly low, replaced -recheck in 1 week (5) Hypokalemia: Code(s): E87.6 - Hypokalemia Status: Acute Assessment and Plan: -mildly low, replaced -recheck in 1 week Subjective Date/time seen: 07/26/21 13:19 Interval history: 65 year old female with a history of fibromyalgia, HTN, DM, asthma and multiple abdominal surgeries in the past, admitted for small bowel obstruction. Pt feels good and is ready to go home. She had a low fiber meal for lunch and tolerated well. No abd pain, nausea, vomiting. no cp, sob. No other complaints. Review of Systems Review of Systems: All systems reviewed & are unremarkable except as noted in HPI and below Exam Narrative: General: NAD, non toxic Skin: warm, dry Neck: Full range of motion. Supple. Respiratory: Lungs are clear to auscultation bilaterally. Cardiovascular: The heart has a regular rate and rhythm without murmur Lower extremities: No lower extremity edema. Distal pulses are easily palpated. No calf tenderness to palpation. Gastrointestinal: Large abdominal hernia noted to RLQ, soft to palpation, nontender. The abdomen is otherwise soft, nontender and nondistended. Positive bowel sounds. Psychiatric: Lucid and oriented. Memory intact. Neurologic: No focal deficits. Speech is clear. No facial drooping. Objective Data Vital Signs Vital Signs: Vital Signs - 24 hr 07/25/21 14:00 07/25/21 20:00 07/25/21 21:40 Temperature 98.4 F 98.7 F Pulse Rate 75 69 69 Respiratory Rate 18 16 16 Blood Pressure 148/58 H 152/68 H Pulse Oximetry 98 99 99 07/26/21 05:59 Temperature 97.5 F L Pulse Rate 69 Respiratory Rate 16 Blood Pressure 151/64 H Pulse Oximetry 97 Intake/Output Intake/Output: Intake & Output 07/23/21 07/24/21 07/25/21 07/26/21 23:59 23:59 23:59 23:59 Intake Total 1999 3260 2380 Output Total 925 1600 Balance 1075 1660 2380 Meds/Results Medica
[2021-07-26 14:00] VITALS: BP 117/64; PULSE 65; RESP 16; TEMP 36.6; O2SAT 98
== END 2021-07-26 14:41 | disposition home or self-care (01) | DRG 394 ==
LOC: ANHED 07-24 00:22 → ANH3MEDSUR 07-24 01:12
PROVIDERS: Nurse Practitioner Family; Physician Assistant; Admitting Provider Surgery; Emergency Provider Emergency Medicine; PCP Family Medicine; Visit Provider Physician Assistant
DX: K43.0 Incisional hernia with obstruction, without gangrene (principal); Z68.41 Body mass index [BMI] 40.0-44.9, adult; E66.01 Morbid (severe) obesity due to excess calories; E11.9 Type 2 diabetes mellitus without complications; Z20.822 Contact with and (suspected) exposure to COVID-19; I10 Essential (primary) hypertension; M79.7 Fibromyalgia; J45.909 Unspecified asthma, uncomplicated; E83.42 Hypomagnesemia; E87.6 Hypokalemia; Z79.4 Long term (current) use of insulin; Z79.84 Long term (current) use of oral hypoglycemic drugs; Z28.21 Immunization not carried out because of patient refusal; Z87.891 Personal history of nicotine dependence; Z98.890 Other specified postprocedural states
CPT/HCPCS: 36415; 74177; 80048; 80053; 81001; 82948; 83036; 83605; 83690; 83735; 85025; 85027; 87086; 87088; 96374; 96376; 99285; A9270; C9113; C9803; J7030; Q9967; U0003; U0005

== ENCOUNTER 2022-05-02 08:55 | Outpatient (CLI) | payer MEDICARE, SELFPAY ==
--- NOTE | ~2022-05-02 | MM_ITS ---
EXAMINATION: MM screening katty BI w marquise HISTORY: Screening TECHNIQUE: Craniocaudal and mediolateral oblique 3-D tomosynthesis images were obtained and synthetic 2-D images were generated. CAD analysis was submitted and interpreted. COMPARISON: No prior mammogram is available for comparison at this institution. BREAST PARENCHYMAL COMPOSITION: There are scattered areas of fibroglandular density. FINDINGS: There is no evidence of suspicious mass, calcification, or architectural distortion to sugg est malignancy in either breast. There has been no suspicious interval change. IMPRESSION: 1. No mammographic evidence of malignancy. 2. Recommend routine screening mammography in one year. BI-RADS Category 1: Negative Reviewed, dictated and finalized at location A. PING ROOM CLEANER
== END 2022-05-02 08:56 | disposition home or self-care (01) ==
LOC: CHSIMG 08:57
PROVIDERS: PCP Family Medicine; Visit Provider Family Medicine
DX: Z12.31 Encounter for screening mammogram for malignant neoplasm of breast (principal)
CPT/HCPCS: 77063; 77067

== ENCOUNTER 2022-06-26 06:49 | Emergency (ER) | payer OTHER, MEDICARE, SELFPAY ==
[2022-06-26] VITALS (8 sets, daily range): BP systolic 141–171; BP diastolic 70–75; PULSE 69–78; RESP 16–23; TEMP 36.8; O2SAT 97–100
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
== END 2022-06-26 08:36 | disposition home or self-care (01) ==
PROVIDERS: Emergency Provider Emergency Medicine; PCP Family Medicine
DX: S00.03XA Contusion of scalp, initial encounter (principal); S40.011A Contusion of right shoulder, initial encounter; V49.50XA Passenger injured in collision with unspecified motor vehicles in traffic accident, initial encounter; J45.909 Unspecified asthma, uncomplicated; I10 Essential (primary) hypertension; M79.7 Fibromyalgia; E11.9 Type 2 diabetes mellitus without complications; Z79.4 Long term (current) use of insulin; E78.5 Hyperlipidemia, unspecified
CPT/HCPCS: 70450; 71046; 72125; 73010; 73030; 99284

== ENCOUNTER → 2022-07-02 12:27 | Outpatient (CLI) | payer MEDICARE, SELFPAY ==
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
== END ==
PROVIDERS: PCP Family Medicine; Visit Provider Obstetrics & Gynecology
DX: Z78.0 Asymptomatic menopausal state (principal)
CPT/HCPCS: 77080

== ENCOUNTER 2025-03-03 08:08 | Outpatient (RCR) | payer MEDICARE, SELFPAY ==
--- NOTE | 2025-03-03 08:58 | OPREHPOC ---
Outpatient Therapy Plan of Care This is a Multidisciplinary Plan of Care that may contain components documented by all disciplines (PT, OT, and ST.) PT Problem 1 PT Problem #1 Knowledge Deficit PT Goal 1 Goal / Goal Update The patient will be independent in a home exercise program. Target Visit 4 PT Problem 2 PT Problem #2 Pain PT Goal 1 Goal / Goal Update The patient will report no greater than 3/10 cervical pain with turning her head and sleeping. Target Visit 12 PT Problem 3 PT Problem #3 Impaired Functional Mobility PT Goal 1 Goal / Goal Update The patient will demonstrate 10% or less self perceived disability per the NDI. The patient will report the ability to sleep for 5 + hours without waking due to neck pain. Target Visit 12 PT Problem 4 PT Problem #4 Impaired Range of Motion PT Goal 1 Goal / Goal Update The patient will demonstrate at least 60 degrees bilateral cervical rotation AROM to improve driving ability. Target Visit 12
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
--- NOTE | 2025-03-18 07:00 | PCPTNOTE ---
Cancelled session. No reason given.
--- NOTE | 2025-04-08 10:01 | OPREHPOC ---
Outpatient Therapy Plan of Care This is a Multidisciplinary Plan of Care that may contain components documented by all disciplines (PT, OT, and ST.) PT Problem 1 PT Problem #1 Knowledge Deficit PT Goal 1 Goal / Goal Update The patient will be independent in a home exercise program. Target Visit 4 Progress Met PT Problem 2 PT Problem #2 Pain PT Goal 1 Goal / Goal Update The patient will report no greater than 3/10 cervical pain with turning her head and sleeping. Target Visit 12 Progress Partially Met PT Problem 3 PT Problem #3 Impaired Functional Mobility PT Goal 1 Goal / Goal Update The patient will demonstrate 10% or less self perceived disability per the NDI. The patient will report the ability to sleep for 5 + hours without waking due to neck pain. Target Visit 12 Progress Partially Met PT Problem 4 PT Problem #4 Impaired Range of Motion PT Goal 1 Goal / Goal Update The patient will demonstrate at least 60 degrees bilateral cervical rotation AROM to improve driving ability. Target Visit 12 Progress Partially Met
--- NOTE | 2025-04-08 10:02 | PTOPPROG ---
Assessment and note entered by Debby Bhagat, PT Evaluation Information Assessment Status Progress ICD-10 Condition Codes (PT) Cervicalgia M54.2 Subjective Information Giuliana Jerry reports that her neck is getting better overall. She has been using a hot pack and stretching everyday and that has helped her pain. She has also been working on her posture which has helped. Assessment PT Clinical Summary Giuliana Jerry has completed 10 skilled PT visits for chronic cervical pain that was previously managed with palliative care specialist. She reports ___ has difficulty with turning her head and sleeping. She objectively demonstrates improved cervical AROM for rotation and flexion. She continues to have decreased cervical lateral flexion AROM, decreased left shoulder strength, tenderness in bilateral upper trapezius muscles, poor posture, and muscle atrophy about the left shoulder. She will continue to benefit from skilled PT to further address these limitations. Plan of Care Interventions Electrical Stimulation,Hot Pack/Cold Pack,Manual Therapy,Mechanical Traction,Neuro Re-education, Patient/Caregiver Education,Therapeutic Activities ,Therapeutic Exercise,Self-Care/Home Management PT Services Indicated Yes Treatment Frequency and Continue POC for 2 more visits Duration These treatments will address the objective and functional deficits as defined above. The patient will be advanced safely and appropriately in order for the patient to progress towards his/her prior level of function. Additional exercises will be introduced and as well as a comprehensive home exercise program upon discharge, if needed, ?to ensure carryover of functional gains achieved in the clinic. This treatment plan has been reviewed and agreement upon by the patient.
--- NOTE | 2025-04-19 08:23 | OPREHPOC ---
Outpatient Therapy Plan of Care This is a Multidisciplinary Plan of Care that may contain components documented by all disciplines (PT, OT, and ST.) PT Problem 1 PT Problem #1 Knowledge Deficit PT Goal 1 Goal / Goal Update The patient will be independent in a home exercise program. Target Visit 4 Progress Met PT Problem 2 PT Problem #2 Pain PT Goal 1 Goal / Goal Update The patient will report no greater than 3/10 cervical pain with turning her head and sleeping. Target Visit 12 Progress Not Met PT Problem 3 PT Problem #3 Impaired Functional Mobility PT Goal 1 Goal / Goal Update The patient will demonstrate 10% or less self perceived disability per the NDI. not met The patient will report the ability to sleep for 5 + hours without waking due to neck pain. sometimes Target Visit 12 Progress Partially Met PT Problem 4 PT Problem #4 Impaired Range of Motion PT Goal 1 Goal / Goal Update The patient will demonstrate at least 60 degrees bilateral cervical rotation AROM to improve driving ability. Target Visit 12 Progress Met
--- NOTE | 2025-04-19 08:23 | PTOPDC ---
Assessment and note entered by JT File, PT Evaluation Information Assessment Status Discharge ICD-10 Condition Codes (PT) Cervicalgia M54.2 Subjective Information Giuliana Flores reports that her neck is getting better overall. She has been using a hot pack and stretching everyday and that has helped her pain. She has also been working on her posture which has helped. Reported Pain Level Pain Score 4: Self Report Assessment PT Clinical Summary mrs. flores presents to skilled PT for her 12th skilled PT visit. she displays improve cervical rom, reduced overall pain, and improved functional performance. as of this date, she is ready to DC to an independent [facility]. Plan of Care PT Services Indicated Yes
== END 2025-04-19 18:45 | disposition home or self-care (01) ==
LOC: CHSPT 08:08
DX: L73.2 Hidradenitis suppurativa (principal); M47.9 Spondylosis, unspecified; G47.33 Obstructive sleep apnea (adult) (pediatric); E66.09 Other obesity due to excess calories; E78.2 Mixed hyperlipidemia; I10 Essential (primary) hypertension; K56.609 Unspecified intestinal obstruction, unspecified as to partial versus complete obstruction; D35.01 Benign neoplasm of right adrenal gland; L98.8 Other specified disorders of the skin and subcutaneous tissue; H91.90 Unspecified hearing loss, unspecified ear; H93.12 Tinnitus, left ear; G31.84 Mild cognitive impairment of uncertain or unknown etiology; M79.7 Fibromyalgia
CPT/HCPCS: 97014; 97110; 97140; 97161; G0283

== ENCOUNTER 2025-03-09 12:02 | Outpatient (CLI) | payer MEDICARE, SELFPAY ==
--- NOTE | ~2025-03-09 | MM_ITS ---
EXAMINATION: MM screening katty BI w marquise HISTORY: Screening TECHNIQUE: Craniocaudal and mediolateral oblique 3-D tomosynthesis images were obtained and synthetic 2-D images were generated. CAD analysis was submitted and interpreted. COMPARISON: 05/02/2022 BREAST PARENCHYMAL COMPOSITION: Not Dense: The breasts are almost entirely fatty. FINDINGS: There is no evidence of suspicious mass, calcification, or architectural distortion to suggest malignancy. There has been no suspicious interval change. IMPRESSION: 1. No mammographic evidence of malignancy. Recommend routine screening mammography in one year. BI-RADS Category 2: Benign finding(s) Reviewed, dictated and finalized at location Q. IMPRESSION: 1. No mammographic evidence of malignancy. Recommend routine screening mammogra phy in one year. BI-RADS Category 2: Benign finding(s)
--- OUTSIDE RECORDS SUMMARY | 2025-03-09 12:29 | XMS_ITS | Clinical Summary ---
Author Organization [facility] Address [address] [place] [address] Care Team Providers Care Top Frame Maker Name Role Phone Mina Mendez MD Unavailable Lewis Burnett MD Primary Care Provider + Allergies Active Allergy Reactions Criticality Noted Date Comments Adhesive Rash,Urticaria Medium 10/28/2018 Aspirin Unknown 05/29/2016 Bee Pollen Other (See comments) Low 03/04/2020 Clindamycin Other (See comments) High Reaction: Diarrhea, , Latex Unknown 10/28/2018 Lidocaine Unknown 05/29/2016 Lisinopril Itching,Rash Medium 11/21/2018 facial itching, n&t around mouth Tapentadol Rash Medium 09/20/2010 Tree Pollen-[place] Other (See comments) Low 02/15 Medications loratadine (CLARITIN) 10 mg tablet take 1 tablet by oral route every day 0 0 5 Active metoprolol (LOPRESSOR) 25 mg tablet Take 25 mg by mouth 2 (two) times a day. Active losartan (COZAAR) 100 mg tablet Take 100 mg by mouth daily. Active insulin syringe-needle U-100 1 mL 31 gauge x 5/16 syringe Active blood glucose diagnostic (NON-FORMULARY) strip Active cyanocobalamin (Vitamin B-12) 1,000 mcg tabletIndicatio ns:Prevention of Vitamin B12 Deficiency Take 1,000 mcg by mouth daily. Active b complex vitamins capsule Take 1 capsule by mouth daily. Active albuterol HFA (PROVENTIL HFA,VENTOLIN HFA,PROAIR HFA) 90 mcg/actuation inhaler ProAir HFA 90 mcg/actuation aerosol inhaler Active vit D3-folic [id number] 2,000-800-0.32 unit-mcg-mg tablet Take by mouth. Activ e Ozempic 1 mg/dose (2 mg/1.5 mL) pen injector INJECT 1 MG UNDER THE SKIN EVERY 7 DAYS 3 Syringe 0 Active Additional Information Patient not taking.Reported on 12/31/2024 metFORMIN (GLUCOPHAGE) 1,000 mg tablet TAKE 1 TABLET BY MOUTH TWICE A DAY WITH MEALS 180 tablet 1 Active Additional Information Patient not taking.Reported on 12/31/2024 Active Problems Problem Noted Date Diagnosed Date Open abdominal wall wound 01/01/2025 Assessment & Plan (01/01/2025 3:18 PM CDT): We have discussed the likely explanation for her chronic wound. The main reason we would likely be foreign material that has led to some chronic inflammatory response that we will not heal until all of its resolved. A less likely explanation would be some type of small bowel fistula that intermittently opens and closes. She needs further imaging as this has not been done in quite some time. Ideally if she is going to have something done it would be nice if the large abdominal wall defect that she has in the right mid and lower abdomen could be addressed at the same time. She does not like the idea of foreign material being placed and rightfully so. I have discussed with her that there are longer lasting biologics that may be a good option for her. Given the complexity and potential need for component separation and releases she may be better suited at the [facility]. I am going to defer imaging until they evaluate her. If just a true diastasis or after their discussion she does not want to proceed with anything more than just addressing the chronically draining wound I would be happy to try and help her here. However I would love for her to be able to have both things addressed so she would only have to do 1 surgery. She is in understanding and in agreement with the plan. Allergic rhinitis 11/03/2018 Asthma 11/03/2018 Deviated nasal septum 11/03/2018 Fatigue 11/03/2018 HLD (hyperlipidemia) 11/03/2018 Hypertrophy of nasal turbinates 11/03/2018 Low back pain 11/03/2018 Osteoarthritis 11/03/2018 Sinus drainage 11/03/2018 Hyperlipidemia associated with type 2 diabetes akshat robin 06/24/2018 Assessment & Plan (02/02/2020 3:48 PM CDT): Goal of treatment , LDL cholesterol less than 100 ( less than 70 in patients with history of heart attacks and / or strokes ) NonHDL cholesterol ( total cholesterol minus HDL cholesterol ) goal less than 130 ( less than 100 in patients with history of heart attacks and / or strokes ) Low cholesterol, low fat diet was discussed and advised. Daily exercise On statin therapy with Pravachol Assessment & Plan (09/01/2019 12:57 PM CDT): Goal of treatment , LDL cholesterol less than 100 ( less than 70 in patients with history of heart attacks and / or strokes ) NonHDL cholesterol ( total cholesterol minus HDL cholesterol ) goal less than 130 ( less than 100 in patients with history of heart attacks and / or strokes ) Low cholesterol, low fat diet was discussed and advised. Daily exercise On statin therapy Assessment & Plan (01/29/2019 11:55 AM CDT): Goal of treatment , LDL cholesterol less than 100 ( less than 70 in patients with history of heart attacks and / or strokes ) NonHDL cholesterol ( total cholesterol minus HDL cholesterol ) goal less than 130 ( less than 100 in patients with history of heart attacks and / or strokes ) Low cholesterol, low fat diet was discussed and advised. Daily exercise On statin therapy Assessment & Plan (10/28/2018 12:04 PM CDT): Goal of treatment , LDL cholesterol less than 100 ( less than 70 in patients with history of heart attacks and / or strokes ) NonHDL cholesterol ( total cholesterol minus HDL cholesterol ) goal less than 130 ( less than 100 in patients with history of heart attacks and / or strokes ) Low cholesterol, low fat diet was discussed and advised. Daily exercise On statin therapy Assessment & Plan (06/24/2018 11:03 AM DRILLING SUPERVISOR): Goal of treatment , LDL cholesterol less than 100 ( less than 70 in patients with history of heart attacks and / or strokes ) NonHDL cholesterol ( total cholesterol minus HDL cholesterol ) goal less than 130 ( less than 100 in patients with history of heart attacks and / or strokes ) Low cholesterol, low fat diet was discussed and advised. Daily exercise On statin therapy Morbid obesity 03/06/2018 Assessment & Plan (03/06/2018 4:59 PM CDT): Diet and exercise were discussed. 1200 Calorie diet advised 45-60 min aerobic / resistance exercise most days of the week recommended. Bariatric surgery medically indicated and recommended Information for the [facility] bariatric [facility] provided BMI 40.0-44.9, adult 03/06/2018 Lung mass 02/13/2017 Overview (03/09/2019): CT positive [facility] 02/01/2017 In retrospect visible on 06/02/[address] no never mentioned in the report EBUS 02/20/2017 negative for infection, malignancy Improved 04/08/17 CT 03/09/[address] mass is gone Assessment & Plan (03/09/2019 3:44 PM CDT): CT positive [facility] 02/01/2017 In retrospect visible on 06/02/[address] no never mentioned in the report EBUS 02/20/2017 negative for infection, malignancy Improved 04/08/17 CT 03/09/[address] mass is gone Assessment & Plan (04/08/2017 12:07 PM CDT): Stability for two years with negative bronchoscopy, conservative management Repeat CT one year Notify us off any problems in the interim Get the flu shot 61 years old, pneumonia shot when 64 Assessment & Plan (02/13/2017 10:06 AM CDT): Discussed with patient, Dr. Tomer Avery, will proceed on to EBUS on 02/20/2017 at 10:00 a.m. All questions answered, patient wishes to proceed without delay. Suspicious for cyst, rule out bronchogenic carcinoma. Management pends the EBUS findings Obstructive sleep apnea 02/13/2017 Overview (02/13/2017): Home study confirmed Assessment & Plan (03/09/2019 3:45 PM CDT): Home study positive, refuses CPAP because of her allergies Given a copy of her study to take her dentist to see if an oral mouthpiece can be arranged Assessment & Plan (04/08/2017 12:07 PM CDT): CPAP being arranged and monitored by her primary physician Assessment & Plan (02/13/2017 10:06 AM CDT): Working with Clarice to get auto titrating CPAP established Hypertension associated with diabetes 02/13/2017 Assessment & Plan (04/12/2020 10:15 AM CDT): Goal blood pressure is less than 140/85 Low salt diet was discussed andd recommended The importance of daily aerobic exercise was also emphasized. Continue current meds, including BRENDA-I or ARB, e.g. Assessment & Plan (02/02/2020 3:47 PM CDT): Goal blood pressure is less than 140/85 Low salt diet was discussed andd recommended The importance of daily aerobic exercise was also emphasized. Continue current meds, including BRENDA-I or ARB, e.g. losartan Assessment & Plan (01/29/2019 11:55 AM CDT): Goal blood pressure is less than 140/85 Low salt diet recommended Daily aerobic exercise Continue current meds, including BRENDA-I or ARB Assessment & Plan (10/28/2018 12:05 PM CDT): Goal blood pressure is less than 140/85 Low salt diet recommended Daily aerobic exercise Continue current meds, including BRENDA-I or ARB Assessment & Plan (02/13/2017 12:49 PM CDT): Losartan, hydrochlorothiazide, metoprolol BRENDA allergic with angioedema Diabetes mellitus type 2, insulin dependent 01/17 Assessment & Plan (10/28/2018 12:04 PM CDT): Your Hba1c today was: Lab Results Component Value Date HGBA1C 6.8 10/28/2018 meaning a 3 month average sugar of : 140 Your goal hba1c is under 7.0 to prevent termite renewal inspector diabetes complications ( eye , kidney and nerve damage ) . Your goal sugars are in the 90-130 range Exercise recommendations: It is recommended that you do daily aerobic ( walking, riding a bike, swimming ) and resistance exercises ( light weight lifting, resistance band stretching ) for at least 30 minutes , most days of the week. If you can not walk, chair exercises for 10-15 min a day would help tremendously. As little as 15-20 minutes exercise , in one or two sessions a day, is still very helpful to improve your diabetes control . Diet recommendations: Eat small portion meals, trying not to consume more than 1800 calories a day . Try to eat not more than than 2 servings of carbs ( starches ) wiith your meals. Avoid soft drinks, including regular sodas , fruit juices and sweetened tea. Drink water instead. Eat plenty of green and leafy vegetables, including salads. Medications: Take your medications regularly. Setting phone alarms can help . Keep your medication on the kitchen dinner table, by the bedside table or by the sink where they are visible to you. If you are taking insulin : the insulin that you are currently using does not need to be refrigerated. Keep it where you can see it . Monitor your sugar levels with finger sticks regularly and keep a log sheet or book. Bring your sugar meter and /or a log book or log sheet to every office visit. Lower Novolin 70/30 to 50 u am and 20 units pm. Try to increase Ozempic to 1 mg weekly x 4 weeks. If tolerates well, call so I will send to Assessment & Plan (06/24/2018 11:02 AM DRILLING SUPERVISOR): Your Hba1c today was: Lab Results Component Value Date HGBA1C 7.2 06/24/2018 meaning a 3 month average sugar of : 154 Your goal hba1c is under 7.0 to prevent termite renewal inspector diabetes complications ( eye , kidney and nerve damage ) . Your goal sugars are in the 90-130 range Daily aerobic ( walking, riding a bike, swimming ) and resistance exercises ( light weight lifting, resistance band stretching ) for at least 30 minutes is recommended If you can not walk, chair exercises for 10-15 min a day would help tremendously. As little as 15-20 minutes exercise , in one or two sessions a day, is still very helpful to improve your diabetes control . Eat small portion meals, trying not to consume no more than 1800 calories a day . Try to eat not more than than 3 servings of carbs ( starches ) wiith your meals. Avoid soft drinks, including regular sodas , fruit juices and sweetened tea. Drink water instead. Eat plenty of green and leafy vegetables, including salads. Take your medications regularly. Setting phone alarms can help . Keep your medication on the kitchen dinner table, by the bedside table or by the sink where they are visible to you. The insulin that you are currently using does not need to be refrigerated. Keep it where you can see it . Monitor your sugar levels with finger sticks regularly and keep a log sheet or book. Bring your sugar meter and /or a log book or log sheet to every office visit. Lower Novolin 70/30 to 70 u am and 30 u pm Assessment & Plan (03/06/2018 4:53 PM CDT): Will check hemoglobin A1c Diet and exercise recommended Start Ozempic Assessment & Plan (02/13/2017 12:48 PM CDT): Insulin instructions given for EBUS procedure day. Take her usual PM dose, reduce her 80 units70/30 in the morning to 30 the day of the procedure Mild persistent asthma, uncomplicated 02/13/2017 Assessment & Plan (03/09/2019 3:45 PM CDT): Happy with p.r.n. Albuterol Peak flows excellent Yearly flu shot Assessment & Plan (04/08/2017 12:08 PM CDT): Being treated monitor by her primary care physician with p.r.n. albuterol Assessment & Plan (02/13/2017 10:08 AM CDT): Currently on albuterol p.r.n. Multinodular goiter 01/22/2017 Assessment & Plan (03/06/2018 4:53 PM CDT): Ultrasound repeated FNA of right dominant nodule repeated Assessment & Plan (08/08/2017 1:14 PM DRILLING SUPERVISOR): Ultrasound performed No significant changes in the size of right thyroid nodule F/u in 6 m Will repeat FNA. Assessment & Plan (04/08/2017 12:07 PM CDT): She is aware of it, has been biopsied, being monitored by her primary care physician Assessment & Plan (02/13/2017 12:49 PM CDT): Reportedly biopsied 2016 all benign Assessment & Plan (01/22/2017 11:46 AM CDT): DD includes a benign adenomatous nodule, follicular Neoplasm, thyroid carcinoma. FNA of right upper dominant nodule indicated and performed. Recommendations to follow. Abnormal nuclear stress test 06/19/2016 Fibromyalgia 06/19/2016 SOB (shortness of breath) 06/19/2016 Incisional hernia 05/31/2015 Overview (09/20/2016): Incisional hernia Assessment & Plan (04/08/2017 12:08 PM CDT): Essentially completely healed on today's examination with just a small superficial ulceration left Adrenal adenoma 10/20/2012 Diabetes mellitus 06/06/2012 Assessment & Plan (04/12/2020 10:18 AM CDT): Hba1c was Lab Results Component Value Date HGBA1C 6.7 04/12/2020 today, indicating adequate DM control Goal blood sugars in the 120-150 range , with Hb1c under 7.0 % was explained 1800 calorie, consistent carb diet recommended. No more than 30-45 grams of carbs per meal recommended, as well as avoiding high concentrated sweet drinks . 25-45 min daily exercise, combining both aerobic and resistance exercise recommended. Stop Novolog 70/30. Continue Ozempic and Metformin Prevention and treatment of hyypoglcyemia discussed. Assessment & Plan (02/02/2020 3:32 PM CDT): Hba1c was Lab Results Component Value Date HGBA1C 8.8 02/02/2020 today, indicating inadequate DM control 1800 calorie, consistent carb diet recommended. No more than 30-45 grams of carbs per meal recommended, as well as avoiding high concentrated sweet drinks . 25-45 min daily exercise, combining both aerobic and resistance exercise recommended. The need to monitor blood glucose before meals and bedtime was discussed. Prevention and treatment of hyypoglcyemia discussed. Insulin dose: Continue current dose Work on exercise. Continue Ozempic Will start Sarath CGM Assessment & Plan (09/01/2019 12:57 PM CDT): Hba1c was Lab Results Component Value Date HGBA1C 9.2 09/01/2019 today, indicating poor, worsening DM control 1800 calorie, consistent carb diet recommended. No more than 30-45 grams of carbs per meal recommended, as well as avoiding high concentrated sweet drinks . 25-45 min daily exercise, combining both aerobic and resistance exercise recommended. The need to monitor blood glucose before meals and bedtime was discussed. Prevention and treatment of hyypoglcyemia discussed. Start metformin , 500 mg twice a day, with meals. Stay on Ozempic 1 mg weekly. Novolin 70/30, take 45 units twice a day Assessment & Plan (01/29/2019 11:52 AM CDT): Your Hba1c today was: Lab Results Component Value Date HGBA1C 6.8 % 01/29/2019 meaning a 3 month average sugar of : 140 Your goal hba1c is under 7.0 to prevent usp diabetes complications ( eye , kidney and nerve damage ) . Your goal sugars are in the 90-130 range Exercise recommendations: It is recommended that you do daily aerobic ( walking, riding a bike, swimming ) and resistance exercises ( light weight lifting, resistance band stretching ) for at least 30 minutes , most days of the week. If you can not walk, chair exercises for 10-15 min a day would help tremendously. As little as 15-20 minutes exercise , in one or two sessions a day, is still very helpful to improve your diabetes control . Diet recommendations: Eat small portion meals, trying not to consume more than 1800 calories a day . Try to eat not more than than 2 servings of carbs ( starches ) wiith your meals. Avoid soft drinks, including regular sodas , fruit juices and sweetened tea. Drink water instead. Eat plenty of green and leafy vegetables, including salads. Medications: Take your medications regularly. Setting phone alarms can help . Keep your medication on the kitchen dinner table, by the bedside table or by the sink where they are visible to you. If you are taking insulin : the insulin that you are currently using does not need to be refrigerated. Keep it where you can see it . Monitor your sugar levels with finger sticks regularly and keep a log sheet or book. Bring your sugar meter and /or a log book or log sheet to every office visit. Lower Novolin 70/30 to 40 units Stay on Ozempic 1 mg qd Encounters Date Type Department Care Team Description 03/06/2025 1:43 PM CDT - 03/06/2025 11:59 PM CDT Hospital Encounter [facility] [id number] [place] [id number] Open wound of abdominal wall, subsequent encounter Discharge Disposition: Discharge to home or self care 02/18/2025 Orders Only [facility] - [facility] [address], [place] [address] Louie Masters MD Open wound of abdominal wall, subsequent encounter (Primary Dx) 02/18/2025 Telephone [facility]) [facility] [address], [place] [address] Felipa Reynaga RN 12/31/2024 11:00 AM CDT Office Visit [address] [place] [address] Simón Suh MD Open wound of abdominal wall, initial encounter (Primary Dx); Abdominal wall fistula; Fistula from Last 3 Months Surgical History Surgery Date Site/Laterality Comments ADRENALECTOMY HAND SURGERY Medical History Medical History Date Comments Type 2 diabetes mellitus Hypertension Hypercalcemia Asthma Fibromyalgia Family History Medical History Relation Name Comments Diabetes Brother 1 Diabetes Brother 2 Diabetes Brother 3 Diabetes Brother 4 Diabetes Father Diabetes Maternal Grandfather Diabetes Maternal Grandmother Diabetes Mother Diabetes Paternal Grandfather Diabetes Paternal Grandmother Relation Name Status Comments Brother 1 Brother 2 Brother 3 Brother 4 Father Maternal Grandfather Maternal Grandmother Mother Paternal Grandfather Paternal Grandmother Social History Tobacco Use Types Packs/Day Years Used Date Smoking Tobacco: Former Cigarettes 1 1 0 06/1974 - 05/1975 Smokeless Tobacco: Former Tobacco Cessation:Counseling Given: Not Answered Alcohol Use Standard Drinks/Week Comments Yes 0 (1 standard drink = 0.6 oz pur e alcohol) occasional PHQ-2 Answer Date Recorded PHQ-2 Total Score (If total score is 3 or more points, staff should administer the PHQ-9) 0 04/12/2020 Comments Unknown Sex and Gender Information Value Date Recorded Sex Assigned at Not on file Legal Sex Female 9:20 PM DRILLING SUPERVISOR Gender Identity Female 04/11/2020 11:44 AM CDT Sexual Orientation Straight 04/11/2020 11 :44 AM CDT Obstetrics History Last Filed Vital Signs Vital Sign Reading Time Taken Comments Blood Pressure 134/77 12/31/2024 10:49 AM CDT Pulse 74 12/31/2024 10:49 AM CDT Temperature 36.3 C (97.3 F) 12/31/2024 10:49 AM CDT Respiratory Rate 12 04/12/2020 9:48 AM CDT Oxygen Saturation 97% 12/31/2024 10:49 AM CDT Inhaled Oxygen Concentration - - Weight 89 kg (196 lb 4.8 oz) 12/31/2024 10:49 AM CDT Height 157.5 cm (5' 2) 12/31/2024 10:49 AM CDT Body Mass Index 35.9 12/31/2024 10:49 AM CDT Plan of Treatment Health Maintenance Due Date Last Done Comments Breast Cancer Screening-Mammogram 1954 Colon Cancer Screening-Colonoscopy 1954 Fall Risk Assessment 1954 Hepatitis C Screening 1954 Osteoporosis Screening-Bone Density Scan 1954 DTaP/Tdap/Td Vaccine (1 - Tdap) 1965 Hepatitis B Screening 1972 Zoster Vaccine (1 of 2) 2004 Pneumococcal vaccine 65+ (2 of 2 - PCV) 07/14/2013 07/14/2012 eGFR 10/18/2019 10/17/2018 Well Visit 65+ 11/19/2019 Hemoglobin A1C 10/11/2020 04/12/2020, 01/15, 09/01/2019, Additional history exists Lipid Panel 02/01/2021 02/02/2020, 05/0 08/2018, 04/20/2005 Albumin Creatinine Ratio, Urine 02/07/2021 02/08/2020, 10/17/2018, 03/28/2018 Depression Screening 04/12/2021 04/12/2020, 02/02/2020, 09/01/2019, Additional history exists Foot Exam 04/12/2021 04/12/2020, 01/15, 09/01/2019, Additional history exists Dilated Eye Exam 07/08/2022 07/08/2021, 03/28/2021 Influenza Vaccine (#1) 2025 04/04/2018, 2015 Procedures Procedure Name Priority Date/Time Associated Diagnosis Comments CT ABDOMEN PELVIS W CONTRAST Schedule Routine, Read Routine (OP Routine) 03/06/2025 1:55 PM CDT Open wound of abdominal wall, subsequent encounter DIABETIC EYE EXAM Routine 07/08/2021 POCT HEMOGLOBIN A1C Routine 04/12/2020 9 :59 AM CDT Type 2 diabetes mellitus with hyperglycemia, with long-term current use of insulin (HCC) ALBUMIN CREATININE RATIO, URINE Routine 02/08/2020 8:34 AM CDT Hypertension associated with diabetes (HCC) POCT LIPID PANEL Routine 02/02/2020 2:58 PM CDT Type 2 diabetes mellitus with hyperglycemia, with long-term current use of insulin (HCC) COMPREHENSIVE METABOLIC PANEL Routine 10/17/2018 11:56 AM CDT Type 2 diabetes mellitus with hyperglycemia, with long-term current use of insulin (HCC) from Last 3 Months or Most Recently Relevant to Health Maintenance Results * CT Abdomen Pelvis W Contrast (03/06/2025 1:55 PM CDT) Anatomical Region Laterality Modality Body N/A Computed Tomogra phy 03/06/2025 8:40 PM CDT Impressions 03/06/2025 8:40 PM CDT 1. Large [place] right ventral abdominal wall hernia containing fat and nondilated loops of small bowel, the cecum, ascending colon, proximal portion of the transverse colon without evidence of bowel obstruction. There is a small area of subcutaneous thickening, adjacent fat stranding and minimal overlying soft tissue ulceration along the superomedial aspect of the hernia near the midline of the abdomen. No organized collection or bowel obstruction. 2. Smaller fat-containing midline ventral abdominal wall hernia superior to the above described hernia. Electronically signed by: MD Ge Almanzar 03/06/2025 8:40 PM CDT EXAMINATION: Computed tomography of the abdomen and pelvis with intravenous contrast HISTORY: Nonhealing abdominal wall wound TECHNIQUE: Transaxial computed tomographic images of the abdomen and pelvis were obtained with intravenous contrast according to the standard protocol after the uneventful administration of 100 mL Opti-Ray 350 intravenous contrast. COMPARISON: Chest CT 03/09/2019 FINDINGS: Imaged lung bases show minimal lingular atelectasis and are otherwise clear. No pleural effusion. Imaged heart size is normal without pericardial effusion. Minimal aortic valve calcifications. No focal liver lesion. No biliary ductal dilation. Patent portal veins. Decompressed gallbladder. Normal spleen, adrenal glands, and pancreas. Surgical clips adjacent to the right adrenal gland. Right renal cyst measuring up to 5.6 cm arising from the inferior pole. Kidneys otherwise enhance symmetrically without hydronephrosis or nephrolithiasis. Urinary bladder is decompressed. Uterus is surgically absent. No suspicious adnexal lesion. Mild atherosclerotic calcifications of the abdominal aorta which is nonaneurysmal. No abdominal or pelvic lymphadenopathy. There is a large [place] right ventral abdominal wall hernia containing mesenteric fat, the cecum, normal appendix, ascending colon, transverse colon, and nondilated loops of small bowel. The defect measures up to 9.3 cm in maximum transaxial dimensions. There is subcutaneous thickening and adjacent fat stranding with minimal overlying soft tissue ulceration at the superior aspect of the hernia near the midline anterior abdominal wall without evidence of tethering to the underlying transverse colon (series 2 image 93).. No organized collection. Just above this area of soft tissue thickening, there is a midline fat-containing ventral abdominal wall hernia with abdominal wall defect measuring up to 29 mm. No evidence of bowel obstruction. There is colonic diverticulosis without evidence of diverticulitis. The stomach is normal. No free intraperitoneal fluid or gas. No suspicious osseous lesions. No acute fractures. Procedure Note Devin Rios MD - 03/06/2025 EXAMINATION: Computed tomography of the abdomen and pelvis with intravenous contrast HISTORY: Nonhealing abdominal wall wound TECHNIQUE: Transaxial computed tomographic images of the abdomen and pelvis were obtained with intravenous contrast according to the standard protocol after the uneventful administration of 100 mL Opti-Ray 350 intravenous contrast. COMPARISON: Chest CT 03/09/2019 FINDINGS: Imaged lung bases show minimal lingular atelectasis and are otherwise clear. No pleural effusion. Imaged heart size is normal without pericardial effusion. Minimal aortic valve calcifications. No focal liver lesion. No biliary ductal dilation. Patent portal veins. Decompressed gallbladder. Normal spleen, adrenal glands, and pancreas. Surgical clips adjacent to the right adrenal gland. Right renal cyst measuring up to 5.6 cm arising from the inferior pole. Kidneys otherwise enhance symmetrically without hydronephrosis or nephrolithiasis. Urinary bladder is decompressed. Uterus is surgically absent. No suspicious adnexal lesion. Mild atherosclerotic calcifications of the abdominal aorta which is nonaneurysmal. No abdominal or pelvic lymphadenopathy. There is a large [place] right ventral abdominal wall hernia containing mesenteric fat, the cecum, normal appendix, ascending colon, transverse colon, and nondilated loops of small bowel. The defect measures up to 9.3 cm in maximum transaxial dimensions. There is subcutaneous thickening and adjacent fat stranding with minimal overlying soft tissue ulceration at the superior aspect of the hernia near the midline anterior abdominal wall without evidence of tethering to the underlying transverse colon (series 2 image 93).. No organized collection. Just above this area of soft tissue thickening, there is a midline fat-containing ventral abdominal wall hernia with abdominal wall defect measuring up to 29 mm. No evidence of bowel obstruction. There is colonic diverticulosis without evidence of diverticulitis. The stomach is normal. No free intraperitoneal fluid or gas. No suspicious osseous lesions. No acute fractures. IMPRESSION: 1. Large wid[place] right ventral abdominal wall hernia containing fat and nondilated loops of small bowel, the cecum, ascending colon, proximal portion of the transverse colon without evidence of bowel obstruction. There is a small area of subcutaneous thickening, adjacent fat stranding and minimal overlying soft tissue ulceration along the superomedial aspect of the hernia near the midline of the abdomen. No organized collection or bowel obstruction. 2. Smaller fat-containing midline ventral abdominal wall hernia superior to the above described hernia. Electronically signed by: Devin Rios MD Result [facility] Louie Masters MD IMG CT PROCEDURES Fi nal Result * Diabetic Eye Exam (07/08/2021) Result [facility] Mercy Watkins MD HEALTH MAINTENANCE Final Result * POCT hemoglobin A1c (04/12/2020 9:59 AM CDT) Hemoglobin A1C, POC 6.7 Blood specimen (specimen) 04/12/2020 9:59 AM CDT Result [facility] Lindy Lott MD POINT OF CARE TEST ORDERABLES Fi nal Result * Albumin Creatinine Ratio, Urine (02/08/2020 8:34 AM CDT) Creatinine, ur TNP mg/dL [facility] Comment: TEST NOT PERFORMED Specimen leaked in transit. Microalbumin/c reat ratio CANCELED mcg/mg creat [facility] Comment:Result canceled by t he ancillary. Microalbumin, ur TNP mg/dL [facility] Comment: TEST NOT PERFORMED Specimen leaked in transit. Urine 02/08/2020 8:34 AM CDT 02/08/2020 8:36 AM CDT Narrative [facility] - 02/09/2020 4:46 PM CDT FASTING:YES FASTING: YES Result [facility] Lindy Lott MD LAB URINE ORDERABLES Final Resul t [facility] [address] [id number] * POCT lipid panel (02/02/2020 2:58 PM CDT) Cholesterol, POC 166 mg/dL HDL, POC 51 mg/dL Triglycerides, POC 139 mg/dL LDL Cholesterol POC 87 mg/dL Chol/HDL Ratio, POC 3.3 Non-HDL Cholesterol, POC 115 mg/dL Cholesterol Total, POC 166 mg/dL Capillary blood 02/02/2020 2 :58 PM CDT Lindy Lott MD POINT OF CARE TEST ORDERABLES Fi nal Result * (ABNORMAL) Comprehensive metabolic panel (10/17/2018 11:56 AM CDT) Glucose 100(H) 65 - 99 mg/dL [facility] Comment: Fasting reference interval For someone without known diabetes, a glucose value between 100 and 125 mg/dL is consistent with prediabetes and should be confirmed with a follow-up test. BUN 11 7 - 25 mg/dL [facility] Creatinine 0.86 0.50 - 0.99 mg/dL [facility] Comment: For patients >49 years of age, the reference limit for Creatinine is approximately 13% higher for people identified as -Greek. eGFR NON-AFR. ZIMBABWEAN 72 > OR = 60 mL/min/1 .73m2 [facility] EGFR 83 > OR = 60 mL/min/1 .73m2 [facility] BUN/creat ratio NOT APPLICABLE 6 - 22 (calc) [facility] Sodium 140 135 - 146 mmol/L [facility] Potassium, pl 4.4 3.5 - 5.3 mmol/L [facility] Chloride 103 98 - 110 mmol/L [facility] CO2 25 20 - 32 mmol/L [facility] Calcium 9.5 8.6 - 10.4 mg/dL [facility] Protein, sr 7.2 6.1 - 8.1 g/dL [facility] Albumin 4.1 3.6 - 5.1 g/dL [facility] GLOBULIN 3.1 1.9 - 3.7 g/dL (calc) [facility] Alb/glob ratio 1.3 1.0 - 2.5 (calc) [facility] Bilirubin, total 0.5 0.2 - 1.2 mg/dL [facility] Alk phos 81 33 - 130 U/L [facility] AST 17 10 - 35 U/L [facility] ALT (SGPT) 17 6 - 29 U/L [facility] Blood specimen (specimen) 10/17/2018 11:56 AM CDT 10/17/2018 11:57 AM CDT Narrative [facility] - 10/18/2018 4:20 PM CDT FASTING:YES FASTING: YES Resulting Agency Comment Performing Organization Information: Site ID: [id number] Name: [facility] Address: [address] [address] Director: Giovanni Valentin D.O., MPH us Lindy Lott MD LAB BLOOD ORDERABLES Final Resul t [facility] from Last 3 Months or Most Recently Relevant to Health Maintenance Insurance [employer] [place] MEDICARE AETNA SENIOR SUPPLEMENT [facility] [id number] MEDICARE Care Teams Top Frame Maker Relationship Specialty Start Date End Date Lewis Burnett MD [address] [place] [address] PCP - General Internal Medicine 12/31/24 Mina Mendez MD [address] [place] [address] 11/19/18
--- OUTSIDE RECORDS SUMMARY | 2025-03-09 12:29 | XMS_ITS | Clinical Summary ---
Author Organization [facility] Address [address] [place] [address] Care Team Providers Care Ship Liner Name Role Phone Mina Mendez MD Primary Care Provider [phone] Source Comments [facility],non-owned Affiliates and Associated Physician Practices is amultiple site organization consisting of ambulatory clinics and hospital sitesin [place], [place], [place] and [place]. This disclosure is being madepursuant to the Care Everywhere program and may not contain all information available regarding this patient. Last updated 18.[facility] [place] Allergies Active Allergy Reactions Criticality Noted Date Comments Adhesive Sensitivity Rash,Urticaria Medium 09/20/2010 Aspirin Unknown 05/29/2016 Bee Pollen Other Low 03/04/2020 Clindamycin Other High 03/04/2020 Reaction: Diarrhea, , Latex Unknown 10/28/2018 Lidocaine Skin Reactions,Unknown High 09/20/2010 Lisinopril Itching 08/11/2021 Pollen Extract Other 03/04/2020 Quercus Robur Other 03/04/2020 Tapentadol Rash Medium 09/20/2010 Medications * Be aware that medications may not be up to date on this document. Alwaysverify current medications with the patient. albuterol HFA (PROVENTIL; VENTOLIN; PROAIR) 108 (90 Base) MCG/ACT inhaler ProAir HFA 90 mcg/actuation aerosol inhaler Active B Complex Vitamins CAPS Take 1 capsule by mouth once daily Active cyanocobalamin (VITAMIN B-12) 1000 MCG tablet Take 1,000 mcg by mouth once daily Active fluticasone propionate (FLONASE) 50 MCG/ACT nasal spray SPRAY 2 SPRAYS INTO EACH NOSTRIL EVERY DAY 0 Active fluticasone hfa 110 (FLOVENT HFA 110) 110 MCG/ACT inhaler Flovent HFA 110 mcg/actuation aerosol inhaler Active ibuprofen (MOTRIN) 600 MG tablet Active insulin isophane & reg, human, 70/30 (HUMULIN;NOVOL IN 70/30) vial Inject 45 Units subcutaneously 2 times daily 0 Active NOVOLIN 70/30 RELION vial Inject 45 Units subcutaneously once daily 0 Active insulin syringe-needle (BD ULTRAFINE II) 31G X 10/30 1 ML syringe Active loratadine (CLARITIN) 10 MG tablet 10 mg 5 Active losartan (COZAAR) 100 MG tablet losartan 100 mg tablet Active metoprolol tartrate (LOPRESSOR) 25 MG tablet metoprolol tartrate 25 mg tablet Active semaglutide (OZEPMIC) 2 MG/1.5ML pen Inject 1 mg subcutaneously every 7 days 0 Active metFORMIN (GLUCOPHAGE) 1000 MG tablet TAKE 1 TABLET BY MOUTH TWICE A DAY WITH MEALS 1 Active Zinc 50 MG tablet Take 50 mg by mouth once daily Active Probiotic Product (PROBIOTIC DAILY PO) Active Turmeric (QC TUMERIC COMPLEX PO) Active magnesium 250 MG tablet Take 250 mg by mouth once daily Active Coenzyme Q10 (Co Q-10) 100 MG Active [place]-3 1000 MG Active B Complex-C (SUPER B COMPLEX PO) Active COLLAGEN PO Active Active Problems Problem Noted Date Diagnosed Date SBO (small bowel obstruction) 07/28/2021 Overview (07/28/2021): 65 y/o female with two incisional hernias on the right side of the abdomen who was in [facility] last week for a partial SBO. Symptomatology has resolved and she will be advanced to a regular diet today. Return to this office on 08/11/2021. Tomas Roland MD 07/28/2021 10:32 AM Dept. Of Surgery, [facility] -- Dr. Roland' national secretary, [place]: [phone] option 6 Beeper: [phone] Recurrent ventral incisional hernia 03/04/2020 Overview (03/18/2020): 64 female: diabetic, morbidly obese Body mass index is 47.3 kg/m . with a recurrent right flank incisional hernia x 5 with mesh placed and replace. Patient last May had some drainage superior to the hernia that has now resolved. The patient has absence of domain as the contents in the panniculus cannot be reduced completely -- but freely partially reducible. Discussed an 800 tomy/day diet. Plan CT scan. Tomas Roland MD 03/04/2020 10:00 AM Dept. Of Surgery, [facility] -- Dr. Roland' national secretary, [place]: [phone] Beeper: [phone] 03/18/2020 CT scan of 03/16/2020 a right upper quadrant lateral incisional hernia of 15 cm in one dimension and loss of the right rectus muscle in this area. The is also a smaller fascial defect medial and superior to the large lateral defect. The is an absence of domain (~50% out in anterior abdominal wall tissues. Tomas Roland MD 03/18/2020 10:43 AM Dept. Of Surgery, [facility] -- Dr. Roland' national secretary, [place]: [phone] Beeper: [phone] Allergic rhinitis 11/03/2018 Asthma 11/03/2018 Deviated nasal septum 11/03/2018 Fatigue 11/03/2018 HLD (hyperlipidemia) 11/03/2018 Hypertrophy of nasal turbinates 11/03/2018 Low back pain 11/03/2018 Osteoarthrosis 11/03/2018 Sinus drainage 11/03/2018 Hyperlipidemia associated with type 2 diabetes m dashawnitus 06/24/2018 Overview (03/04/2020): Last Assessment & Plan: Goal of treatment , LDL cholesterol less [...] Daily exercise On statin therapy with Pravachol BMI 50.0-59.9, adult 03/06/2018 Morbid obesity 03/06/2018 Overview (03/04/2020): Last Assessment & Plan: Diet and exercise were discussed. 1200 Calorie diet advised 45-60 min aerobic / resistance exercise most days of the week recommended. Bariatric surgery medically indicated and recommended Information for the [facility] bariatric center provided Diabetes mellitus type 2, insulin dependent 01/17 Overview (03/04/2020): Last Assessment & Plan: Your Hba1c today was: Lab Results Component Value Date HGBA1C 6.8 10/28/2018 meaning a 3 month average sugar of : 140 Your goal hba1c is under 7.0 to prevent care home diabetes complications ( eye , kidney and [...] well, call so I will send to Hypertension associated with diabetes 02/13/2017 Overview (03/04/2020): Last Assessment & Plan: Goal blood pressure is less than 140/85 Low salt diet was discussed andd recommended The importance of daily aerobic exercise was also emphasized. Continue current meds, including BRENDA-I or ARB, e.g. losartan Lung mass 02/13/2017 Overview (03/04/2020): CT positive [facility] 02/01/2017 In retrospect visible on 06/02/[address] no never mentioned in the report EBUS 02/20/2017 negative for infection, malignancy Improved 04/08/17 CT 03/09/[address] mass is gone Last Assessment & Plan: CT positive [facility] 02/01/2017 In retrospect visible on 06/02/[address] no never mentioned in the report EBUS 02/20/2017 negative for infection, malignancy Improved 04/08/17 CT 03/09/[address] mass is gone Mild persistent asthma, uncomplicated 02/13/2017 Overview (03/04/2020): Last Assessment & Plan: Happy with p.r.n. Albuterol Peak flows excellent Yearly flu shot Obstructive sleep apnea 02/13/2017 Overview (03/04/2020): Home study confirmed Last Assessment & Plan: Home study positive, refuses CPAP because of her allergies Given a copy of her study to take her dentist to see if an oral mouthpiece can be arranged Multinodular goiter 01/22/2017 Overview (03/04/2020): Last Assessment & Plan: Ultrasound repeated FNA of right dominant nodule repeated Abnormal nuclear stress test 06/19/2016 Fibromyalgia 06/19/2016 SOB (shortness of breath) 06/19/2016 Incisional hernia 05/31/2015 Overview (03/04/2020): Incisional hernia Last Assessment & Plan: Essentially completely healed on today's examination with just a small superficial ulceration left Adrenal adenoma 10/20/2012 Overview (03/04/2020): S/p laparoscopic adrenalectomy Diabetes mellitus 06/06/2012 Overview (03/04/2020): Last Assessment & Plan: Hba1c was Lab Results Component Value Date [...] exercise. 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 Gender Identity Not on file Sexual Orientation Not on file Last Filed Vital Signs Vital Sign Reading Time Taken Comments Blood Pressure 172/82 02/07/2022 12:55 PM CDT Pulse 76 02/07/2022 12:55 PM CDT Temperature 36.7 C (98 F) 02/07/2022 12:55 PM CDT Respiratory Rate 18 02/07/2022 12:55 PM CDT Oxygen Saturation 98% 02/07/2022 12:55 PM CDT Inhaled Oxygen Concentration - - Weight 97.1 kg (214 lb) 02/07/2022 12:55 PM CDT Height 162.6 cm (5' 4) 02/07/2022 12:55 PM CDT Body Mass Index 36.73 02/07/2022 12:55 PM CDT Plan of Treatment Health Maintenance Due Date Last Done Comments BONE DENSITY TESTING 1954 COLOGUARD (AGES 45-75) - COLON CA SCREENING 1954 COLON MONITORING 1954 COLONOSCOPY - COLON CA SCREENING 1954 CT COLONOGRAPHY - COLON CA SCREENING 1954 Colorectal Cancer Screening 1954 FIT - COLON CA SCREENING 1954 FLEX SIG - COLON CA SCREENING 1954 MAMMOGRAM 1954 MEDICARE AWV 12 MONTHS 1954 HEPATITIS C SCREENING 11/13/1972 DTAP/TDAP/TD VACCINES (1 - Tdap) 1973 PNEUMOCOCCAL VACCINE 50+ (1 of 2 - PCV) 1973 DIABETES-STATIN 1994 ZOSTER VACCINE (1 of 2) 2004 Respiratory Syncytial Virus (RSV) Vaccine Pt: or over 60 yrs (1 - Risk 60-74 years 1-dose series) 2014 DIABETES RETINOPATHY SCREENING 03/04/2020 DIABETES-FOOT EXAM WITH MONOFILAMENT 03/04/2020 DIABETES-HGB A1C 05/04/2020 02/02/2020, 01/2013, 06/27/2012, Additional history exists DIABETES-SERUM CREATININE 03/16/20212019, 06/27/2012, 04/20/2005 DEPRESSION SCREENING 06/17/2024 DIABETES - URINE PROTEIN SCREENING 06/17/2024 COVID-19 VACCINE ( season) 2025 INFLUENZA VACCINE (#1) 2025 HEPATITIS B VACCINE Aged Out No longe r eligible based on patient's age to complete this topic HIB VACCINE Aged Out No longer eligi ble based on patient's age to complete this topic HPV VACCINE Aged Out No longer eligi ble based on patient's age to complete this topic MENINGOCOCCAL (Group B) VACCINE SHARED DECISION-MAKING Aged Out No longer eligible based on patient's age to complete this topic MENINGOCOCCAL GROUPS A/C/Y/W VACCINE Aged Out No longer eligible based on patient's age to complete this topic Procedures Procedure Name Priority Date/Time Associated Diagnosis Comments CREATININE - POCT INTERFACED Routine 03/16/2020 12:04 PM CDT HEMOGLOBIN A1C Routine 10/22/2012 8:00 AM CDT from Last 3 Months or Most Recently Relevant to Health Maintenance Results * CREATININE - POCT INTERFACED (03/16/2020 12:04 PM CDT) Creatinine POCT 0.71 0.30 - 1.30 mg/dL 03/16/2020 12:33 PM CDT [facility] eGFR >60 >60 mL/min/1.7 3 m2 03/16/2020 12:33 PM CDT [facility] Blood BLOOD SPECIMEN / Unknown 03/16/2020 12:04 PM CDT 03/16/2020 12:33 PM CDT us Tomas Roland MD LAB - POINT OF CARE ORDERABL ES Final Result [facility] [address] [place] [address], [facility] [phone] * (ABNORMAL) HEMOGLOBIN A1C (10/22/2012 8:00 AM CDT) Hemoglobin A1c 10.1(H) 4.4 - 6.3 % [facility] Estimated Average Glucose 243 mg/dL [facility] 10/22/2012 8:00 AM CDT 10/22/2012 9:03 AM CDT Damian Garcia MD LAB - CHEMISTRY ORDERABLES Fin al Result [facility] [address] [place] [address], [facility] [phone] from Last 3 Months or Most Recently Relevant to Health Maintenance Insurance [employer] MEDICARE Care Teams Ship Liner Relationship Specialty Start Date End Date Mina Mendez MD [address] [place] [address] PCP - General 03/26/19
--- OUTSIDE RECORDS SUMMARY | 2025-03-09 12:29 | XMS_ITS | Clinical Summary ---
Author Organization [facility] Address [address] [address] Phone Care Team Providers Care Licensed Optician Name Role Phone Lewis Burnett MD Primary Care Provider [phone] Allergies Active Allergy Reactions Criticality Noted Date Comments Aspirin Other (see Comments) 12/31/2024 Bleeding Clindamycin Diarrhea High 12/31/2024 Latex Other (see Comments) 12/31/2024 Sore throat Lidocaine Other (see Comments) High 12/31/2024 Painful and red at site Lisinopril Itching 12/31/2024 Tapentadol Rash 12/31/2024 Wound Dressing Adhesive Hives 12/31/2024 Medications polyethylene glycol (MIRALAX) Powder Use entire 255g bottle with 64oz of clear liquid as directed for colonoscopy prep. 255 g 7 Active Ascorbic Acid (VITAMIN C PO) Take by mouth daily. Active Vitamin D-Vitamin K (D3 + K2 PO) Take by mouth daily. Active Cyanocobalamin (VITAMIN B12 PO) Take by mouth daily. Active CHROMIUM PO Take by mouth daily. Active Misc Natural Products (TURMERIC, CURCUMIN, PO) Take by mouth daily. Active ALPHA LIPOIC ACID PO Take by mouth daily. Active Coenzyme Q10 (COQ10 PO) Take by mouth daily. Active SELENIUM PO Take by mouth daily. Active Berberine Chloride (BERBERINE HCI PO) Take by mouth daily. Active other by Other route daily. CELLUCARE Active other by Other route daily. GlucoGold Active Active Problems Problem Noted Date Diagnosed Date Diverticulosis 01/12/2025 Encounters Date Type Department Care Team Description 01/28[facility]2025 [facility] [place] [address] Vel Shea MD 01/12/2025 8:27 AM CDT [facility] [address] [place] [address] Vito Adames, ROLLER BEARING INSPECTOR, MICROCHIP SPECIALIST 01/12/2025 8:00 AM CDT - 01/12/2025 8:30 AM CDT [facility] [address] [place] [address] Vel Shea MD COLONOSCOPY- NEGATIVE EXAM, DIVERTICULOSIS 01/12/2025 6:55 AM CDT [facility] [address] [place] [address] Vel Shea MD 01/12/2025 6:51 AM CDT - 01/12/2025 9:38 AM CDT [facility] [address] [place] [address] Vel Shea MD Diverticulosis Discharge Disposition: Discharged to home or Selfcare 01/12/2025 Travel 12/31/2024 Travel 12/15/2024 [facility]phone [facility] [place] [address] Vel Shea MD from Last 3 Months Immunizations Immunization Administration Dates Next Due Influenza Vaccine, Quadrivalent, PF 03/07/2016 Influenza, Injectable, Quadrivalent 04/04/2018 Pneumococcal Vaccine Adult - 23 Valent 3 Family History Medical History Relation Name Comments Alzheimer's Disease Father Heart Disease Father Hypertension Father Cancer Maternal Grandmother colon Alzheimer's Disease Mother Diabetes Mother Hypertension Mother Sick sinus syndrome Mother Relation Name Status Comments Father Maternal Grandmother Mother Social History Tobacco Use Types Packs/Day Years Used Date Smoking Tobacco: Never Smokeless Tobacco: Never Tobacco Cessation:Counseling Given: Not Answered Alcohol Use Standard Drinks/Week Comments Not Currently 0 (1 standard drink = 0.6 oz pur e alcohol) Comments Unknown Sex and Gender Information Value Date Recorded Sex Assigned at Not on file Legal Sex Female 7:37 PM CDT Gender Identity Not on file Sexual Orientation Not on file Last Filed Vital Signs Vital Sign Reading Time Taken Comments Blood Pressure 133/74 01/12/2025 9:17 AM CDT Pulse 70 01/12/2025 9:17 AM CDT Temperature 36 C (96.8 F) 01/12/2025 9:02 AM CDT Respiratory Rate 21 01/12/2025 9:17 AM CDT Oxygen Saturation 98% 01/12/2025 9:17 AM CDT Inhaled Oxygen Concentration - - Weight 88.5 kg (195 lb) 01/12/2025 7:18 AM CDT Height 158.8 cm (5' 2.5) 01/12/2025 7:18 AM CDT Body Mass Index 35.1 01/12/2025 7:18 AM CDT Plan of Treatment Health Maintenance Due Date Last Done Comments DEXA Bone Density 1955 Hepatitis C Virus (HCV) Screening 1955 Mammogram 1955 TdaP Immunization 1955 Cologuard 11/19/1999 Immunochemical Fecal Occult Blood 11/19/1999 Zoster Immunization (1 of 2) 2004 Pneumococcal Immunization (5 0+ years) (2 of 2 - PCV) 07/14/2013 07/14/2012 Medicare Initial AWV [id number] 10/16/2019 Influenza Immunization (#1) 02/15/202503/17, 03/07/2016 SARS-COV-2 Immunization (3 - 2024- season) 2025 11/03/2021, 03/14/2021 Respiratory Syncytial Virus (RSV) Immunization (Adult) (1 - 1-dose 75+ series) 2029 Colonoscopy 01/12/2035 01/12/2025 Colorectal Cancer Screening 01/12/2035 Pneumococcal Immunization Combined Discontinued 07/14/2012 Hepatitis B Immunization Aged Out No longer eligible based on patient's age to complete this topic Human Papillomavirus (HPV) Immunization Aged Out No longer eligible based on patient's age to complete this topic Meningococcal Immunization (ACWY) Aged Out No longer eligible based on patient's age to complete this topic Rotavirus Immunization Aged Out No lo nger eligible based on patient's age to complete this topic Procedures Procedure Name Priority Date/Time Associated Diagnosis Comments COLON CA SCRN NOT HI RSK IND 01/12/2025 8:30 AM CDT COLONOSCOPY- NEGATIVE EXAM, DIVERTICULOSIS Special Needs DM - Dx screen COLORECTAL SCRN; HI RISK IND 01/12/2025 8:30 AM CDT COLONOSCOPY- NEGATIVE EXAM, DIVERTICULOSIS Special Needs DM - Dx screen [place] COLONOSCOPY FLX DX W/COLLJ SPEC WHEN PFRMD 01/12/2025 8:30 AM CDT COLONOSCOPY- NEGATIVE EXAM, DIVERTICULOSIS Special Needs DM - Dx screen GI IMAGING - COLONOSCOPY Routine 01/12/2025 6:54 AM CDT from Last 3 Months Results * GI IMAGING - COLONOSCOPY (01/12/2025 6:54 AM CDT) [facility] Mathieu Shea MD IMG DIAGNOSTIC ORDERABLES Final Result from Last 3 Months Insurance MEDICARE [facility] Care Teams Licensed Optician Relationship Specialty Start Date End Date Lewis Burnett MD [address] [id number] PCP - General Internal Medicine 12/08/24
--- OUTSIDE RECORDS SUMMARY | 2025-03-09 12:29 | XMS_ITS | Clinical Summary ---
Author Organization [facility] Address [facility] [place] [address] Care Team Providers Care Counseling Services Manager Name Role Phone Mina Mendez MD Primary Care Provider [phone] Louie Nelson MD Unavailable [phone] Allergies Active Allergy Reactions Criticality Noted Date Comments Aspirin Unknown 05/29/2016 Lidocaine Unknown 05/29/2016 Medications insulin NPH 100 UNIT/ML injection Inject into the skin see administration instructions. Active metoprolol tartrate 25 MG tablet Take 25 mg by mouth 2 (two) times daily. Active Active Problems Problem Noted Date Diagnosed Date Fibromyalgia 06/19/2016 SOB (shortness of breath) 06/19/2016 Abnormal nuclear stress test 06/19/2016 Low back pain Diabetes ([facility]/HCC) Osteoarthritis HTN (hypertension) Fatigue Asthma (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5 cm (5' 2) 05/31/2016 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 Body Mass Index 51.58 05/31/2016 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 Plan of Treatment Health Maintenance Due Date Last Done Comments Colorectal Cancer Screening Colonoscopy (10 Years) 1954 Kidney Health Evaluation 1954 Hemoglobin A1C 1954 Lipid Panel 1954 Diabetes: Retinopathy Eye Exam 1972 Hepatitis C 1972 DTaP, Tdap and Td Vaccines ( 1 - Tdap) 1973 Pneumococcal Vaccine: 50+ Ye ars (1 of 2 - PCV) 1973 Mammogram Screening 1994 Zoster Vaccines (1 of 2) 2004 RSV Immunization or 60+ Years (1 - Risk 60-74 years 1-dose series) 2014 Dexa Scan (General) 11/19/2019 COVID-19 Vaccine ( - 2023-2 5 season) 2025 Meningococcal B Vaccine Aged Out No l onger eligible based on patient's age to complete this topic Meningococcal Vaccine Aged Out No luis e alex eligible based on patient's age to complete this topic RSV Immunizations Under 20 Months Aged Out No longer eligible based on patient's age to complete this topic Insurance [facility] Care Teams Counseling Services Manager Relationship Specialty Start Date End Date Mina Mendez MD [address] [place] [address] PCP - General FAMILY PRACTICE 05/30/16 Louie Nelson MD [address] [place] [address] CARDIOVASCULAR DISEASE 05/30/16
== END 2025-03-09 12:03 | disposition home or self-care (01) ==
PROVIDERS: PCP Internal Medicine; Visit Provider Internal Medicine
DX: Z12.31 Encounter for screening mammogram for malignant neoplasm of breast (principal)
CPT/HCPCS: 77063; 77067